=== PATIENT | male | born 1960 | race Caucasian/White ===

== ENCOUNTER → 2019-03-25 15:17 | Outpatient (BNVA) | payer OTHER, SELFPAY | PROVIDERS: Family Provider Nurse Practitioner; Referring Provider Nurse Practitioner Family; Visit Provider Specialist | DX: M25.522 Pain in left elbow (principal) | CPT/HCPCS: 73080 ==

== ENCOUNTER 2019-04-01 14:44 | Outpatient (CLI) | payer OTHER, SELFPAY ==
--- NOTE | 2019-04-01 16:45 | MR_ITS ---
WS: [id number] MRI LEFT ELBOW without CONTRAST. COMPARISON: LEFT elbow radiograph 03/25/2019 Multiplanar, multisequence imaging is performed without contrast. Abnormal T2 signal in the proximal common extensor tendon just lateral to the humeral epicondyles. Th ere is increased T2 signal with thickening of the tendon. The adjacent radial collateral ligament mariya ears to be intact. There is additional linear T2 increased signal in the capitellum. 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 The signal extends greater into the bone marrow than seen for a megan l pseudodefect. I suspect there is probably a small osteochondral lesion in the posterior condyle. No additional signal abnormalities are identified. There is a very tiny spur along the medial radial head. No muscle edema or atrophy. MR/MR elbow LT wo con* [id number] IMPRESSION: 1. High-grade tear involving the common extensor tendon. 2. Linear osteochondral lesion in the posterior capitellum. This appears separ ate from the known pseudodefect that can be present in this location also.
== END 2019-04-01 14:45 | disposition home or self-care (01) ==
LOC: RADSHAW 14:49
PROVIDERS: Family Provider Nurse Practitioner; Visit Provider Specialist
DX: S56.512A Strain of other extensor muscle, fascia and tendon at forearm level, left arm, initial encounter (principal); X58.XXXA Exposure to other specified factors, initial encounter
CPT/HCPCS: 73221

== ENCOUNTER 2023-01-27 09:03 | Outpatient (CLI) | payer BC, SELFPAY ==
--- NOTE | 2023-01-27 10:03 | FL_ITS ---
WS: [id number] Exam: FL barium swallow [id number] Date/Time of Exam: 01/27/2023 10:46 AM Reason For Exam: DYSPHAGIA,PHARYNGEAL PHASE Fluoroscopy time: 2min [id number] minutes # of spot films: Oropharyngeal phase of swallowing was normal. No aspiration. The esophagus is widely patent. No sign of esophageal stricture or mass. The esophagus is not displaced. No hiatal hernia or gastroesophageal reflux observed. IMPRESSION: 1. Patent esophagus with normal motility. No indication of mass, stricture or other significant findi ng.
== END 2023-01-27 09:04 | disposition home or self-care (01) ==
LOC: RAD 09:03
PROVIDERS: Visit Provider Otolaryngology
DX: R13.13 Dysphagia, pharyngeal phase (principal)
CPT/HCPCS: 74220

== ENCOUNTER 2023-01-30 09:33 | Outpatient (CLI) | payer BC, MEDICAID, SELFPAY ==
--- NOTE | 2023-01-30 09:38 | FL_ITS ---
WS: [id number] Exam: FL barium swallow modifd [id number] Date/Time of Exam: 01/30/2023 10:08 AM Reason For Exam: Pharyngeal dysphagia Fluoroscopy time: 2min [id number] minutes # of spot films: Modified barium swallow was performed in conjunction with the speech therapy service. Oral pharyngeal phase of swallowing was normal. The patient tolerated all consistencies of barium mix ture foodstuffs without aspiration or penetration. The patient ingested a barium tablet without diffi culty however the tablet was retained in the lower esophagus and was propelled into the stomach with several swallows of pudding consistency barium. An underlying stenosis or mass in the lower esophagus is not ruled out. IMPRESSION: 1. No aspiration or penetration. 2. Barium tablet was retained in the lower esophagus and was finally propelled into the stomach by in gesting pudding consistency barium foodstuffs. An underlying stricture or mass in the lower esophagus is not ruled out. Endoscopic evaluation of the esophagus is indicated for further work-up.
== END 2023-01-30 09:34 | disposition home or self-care (01) ==
LOC: RAD 09:33
PROVIDERS: Visit Provider Otolaryngology
DX: R13.13 Dysphagia, pharyngeal phase (principal)
CPT/HCPCS: 74230; 92611

== ENCOUNTER 2023-05-26 06:58 | Outpatient (CLI) | payer BC, MEDICAID, SELFPAY ==
--- NOTE | 2023-05-26 07:07 | CT_ITS ---
WS: [id number] CT CHEST, ABDOMEN AND PELVIS WITH CONTRAST HISTORY: MALIGNANT NEOPLASM OF ESOPHAGUS TECHNIQUE: Contiguous 5 mm axial imaging performed through the chest, abdomen and pelvis with IV cont rast, oral contrast has been provided. Coronal and sagittal reformats chest. Coronal and sagittal ref ormats through the abdomen and pelvis. All CT scans at [facility] use at least one of these d ose optimization techniques: automated exposure control; mA and/or kV adjustment per patient size (in cludes targeted exams where dose is matched to clinical indication); or iterative reconstruction. CONTRAST: Omnipaque 350; 100 mL IV. DLP: 576.14 mGy.cm COMPARISON: None available. Chest CT: Hyperexpanded lungs with RIGHT apical pleural thickening. 5 mm noncalcified nodule within t he area of pleural thickening at the RIGHT apex. There are numerous very tiny nodules along the RIGHT fissures. These are typically benign. These are very small, less than 5 mm. No suspicious masses or nodules identified within either lung. No pneumonia. There is a very small layering RIGHT pleural eff usion. Long segment asymmetric soft tissue thickening involving the RIGHT lateral esophagus beginning just b elow the level of the julia. Esophageal wall measures up to 1.5 cm with narrowing of the lumen. Abno rmality extends to near the GE junction. There are a few small mediastinal lymph nodes which are inde terminate. The largest lymph node is RIGHT hilar measuring 9 mm. No paraesophageal lymph node. Normal size heart. Mild atherosclerosis aorta. Normal pulmonary artery. Abdomen CT: There are 2 very tiny hypodensities in the inferior RIGHT lobe of the liver which are too small to characterize. These could potentially represent early metastatic lesions. Normal portal vei n. Normal spleen. Gallbladder is slightly contracted. Negative adrenal glands. Tiny cortical hypodens ities in the lower pole of each kidney. No obstruction. Moderate atherosclerosis aorta with no aneury sm. There is mild thickening of the gastric mucosa. This is diffuse suggest this may be related to gastri tis. This may have been evaluated if a recent endoscopy was performed on the esophagus. There is no o bstruction. No small bowel obstruction. No colon obstruction. No ascites. No adenopathy. Pelvic CT: No free fluid. Negative urinary bladder. Mild prostate enlargement. IMPRESSION: 1. Long segment eccentric wall thickening involving the esophagus beginning just below the level of the julia. Displacement of the esophageal lumen with narrowing. Highly suspicious for neoplasm. 2. There are small bilateral hilar lymph nodes with the largest measuring 9 mm. No pathologically en larged lymph nodes. 3. There are 2 very tiny hypodensities in the inferior RIGHT lobe of the liver which are too small t o characterize. These potentially could represent very small metastatic lesions. 4. Very small RIGHT pleural effusion. 5. Mild chronic emphysema. 6. Within the RIGHT apical pleural thickening there is a 5 mm noncalcified nodule which should be fu rther evaluated. This can be evaluated by PET/CT imaging or follow-up chest CT in 3 months. 7. No ascites. No adenopathy in the abdomen or pelvis. 8. Mild diffuse gastric mucosal thickening. May be a form of gastritis. This was probably evaluated during endoscopy of the esophagus.
[2023-05-26 08:08] LABS: Blood Urea Nitrogen 6 mg/dL (8-23)
[2023-05-26] MEDS: iohexol 350 mg/mL 500 mL Btl (per mL) PO (08:15)
[2023-05-26] MEDS: iohexol 350 mg/mL 500 mL Btl (per mL) IV (08:16)
== END 2023-05-26 06:59 | disposition home or self-care (01) ==
LOC: RAD 06:58
PROVIDERS: Radiology Diagnostic Radiology; Visit Provider Family Medicine
DX: C15.9 Malignant neoplasm of esophagus, unspecified (principal); J90 Pleural effusion, not elsewhere classified; J43.9 Emphysema, unspecified
CPT/HCPCS: 71260; 74177; 82565; 84520; Q9967

== ENCOUNTER 2023-06-12 09:59 | Oncology outpatient (recurring) (ONCR) | payer BC, MEDICAID, SELFPAY ==
[2023-05-28 10:50] LABS: Basophils # 0.1 10^3/uL (0.0-0.1); Basophils % 1.6 %; Eosinophils # 0.1 10^3/uL (0.0-0.8); Eosinophils % 1.4 %; Lymphocytes % 22.1 %; Mean Corpuscular HGB Conc 33.6 g/dL (30-55); Mean Platelet Volume 9.6 fL (7.4-10.4); Monocytes # 0.7 10^3/uL (0.2-0.9); Monocytes % 8.1 %; Neutrophils % 66.5 %; Nucleated Red Blood Cells % 0 %; Platelet Count 359 10^3/cmm (157-399); Red Blood Count 4.63 10^6/uL (3.85-5.65); Red Cell Distribution Width 12.5 % (12.1-15.1); White Blood Count 8.87 10^3/uL (3.29-11.43)
[2023-05-28 11:16] LABS: Alanine Aminotransferase 14 U/L (0-41); Albumin Level 4.2 g/dL (3.5-5.2); Alkaline Phosphatase 123 U/L (40-130); Aspartate Amino Transferase 13 U/L (0-40); Blood Urea Nitrogen 7 mg/dL (8-23); Calcium 9.3 mg/dL (8.5-10.5); Carbon Dioxide 25 mmol/L (22-29); Chloride 98 mmol/L (98-107); Creatinine Clr Calc Pharmacy 85.9644; Globulin 3.4 g/dL (1.3-4.6); Glomerular Filtration Rate 97.3 mL/min (90-130); Glucose 112 mg/dL (65-115); Osmolality Calculated 277 mOsm/kg (285-295); Sodium 134 mmol/L (136-145); Total Bilirubin 0.7 mg/dL (0.15-1.2); Total Protein 7.6 g/dL (6.6-8.7)
[2023-05-28 11:37] LABS: Anion Gap 15.5 (5-19); Potassium 4.5 mmol/L (3.5-5.1)
--- NOTE | 2023-06-03 11:30 | PETR_ITS ---
ROCEDURE INFORMATION: Exam: PET/CT Skull Base to Mid-thigh Exam date and time: 06/03/2023 12:23 PM Age: 63 years old Clinical indication: Condition or disease; Primary cancer: Esophageal cancer; Initial oncological staging assessment; Additional info: Esophageal cancer, stat LABS AND CLINICAL REPORTS: Glucose: 99 mg/dl Treatment strategy for malignancy (PET staging): Initial Staging (PI) TECHNIQUE: Imaging protocol: Following at least four-hour fasting and following the injection of radiopharmaceutical, low dose CT images were obtained. Then, PET images were obtained. Attenuation corrected images were constructed using the CT scan. Fused images of PET and CT were reviewed. The standardized uptake values (SUV) reported below are maximum values within a region of interest, expressed in gm/ml. Exam includes orbital meatal line to mid-thigh. Radiopharmaceutical: 11.45 mCi F-18 FDG (Fluorodeoxyglucose), IV. Time of imaging post radiopharmaceutical administration: 1 hour Injection site: Left antecubital vein COMPARISON: CT chest abdpel w/*[id number] 05/26/2023 8:11 AM FINDINGS: Brain: Visualized brain has normal physiologic uptake. Pharynx: No abnormal uptake. Larynx: No abnormal uptake. Lungs, pleura and trachea: Intense uptake of 7.4 SUV within 5 mm thick right upper mediastinal pleura (axial images 61-66). Increased uptake of 4.5 SUV inferiorly posteriorly in the right hemithorax along the pleural lining on axial image 102. There is mild right pleural effusion increased in comparison with prior exam on 05/26/2023 that appears loculated with small extension of fluid into the oblique interlobar fissure with increased uptake of 2.4 SUV within the fluid concerning for malignant effusion. There is paraseptal emphysema in the bilateral lung apices. No lung nodules or masses. Heart: Normal physiologic uptake. Mediastinal space: Increased uptake along the right wall of the esophagus from the level immediately below the julia extending into the distal esophagus measuring 7 SUV superiorly and 5.6 SUV inferiorly. It is unclear if the entire uptake is within the esophagus or part of it is within the adjacent right posterior mediastinal pleura. Concentric wall thickening of the in the distal esophagus between T8 and T10 levels. No abnormal dilatation of the esophagus. Liver: No abnormal uptake. Gallbladder and bile ducts: No abnormal uptake. No calcified gallstones. Pancreas: No abnormal uptake. Spleen: No abnormal uptake. No splenomegaly. Adrenal glands: No abnormal uptake. No nodules. Kidneys and ureters: Normal physiologic uptake. No hydronephrosis. Stomach and bowel: No abnormal uptake. Vasculature: No abnormal uptake. Lymph nodes: No abnormal uptake. No lymphadenopathy in the head, neck, chest, abdomen, pelvis, and extremities. There is sequela of exposure to granulomatous disease with calcified granulomas in normal size left hilar lymph nodes. Bones/joints: No abnormal uptake in the visualized axial and appendicular skeleton. Soft tissues: No abnormal uptake in the visualized head, neck, chest, abdomen, pelvis, and extremities. PET[facility] IN[facility]IAL [id number] IMPRESSION: Area of concentric wall thickening in the distal esophagus between T8 and T10 levels with increased uptake only along the right wall measuring up to 7 SUV suggestive of known primary malignancy. Increased uptake along the right posterior mediastinal pleura and within small right pleural effusion concerning for pleural metastases and malignant effusion.
== END 2023-06-17 23:59 | disposition home or self-care (01) ==
PROVIDERS: Visit Provider Internal Medicine Medical Oncology
DX: Z53.9 Procedure and treatment not carried out, unspecified reason (principal)
CPT/HCPCS: 36415; 78815; 80053; 84443; 85025; A9552

== ENCOUNTER 2023-06-16 15:13 | Outpatient (CLI) | payer BC, MEDICAID, SELFPAY ==
--- NOTE | 2023-06-16 15:30 | US_ITS ---
WS: [id number] RIGHT chest ultrasound. HISTORY: Evaluate pleural effusion. COMPARISON: PET/CT 06/03/[address] 05/26/2023. There is a small layering RIGHT pleural effusion. There is mild irregularity along the pleura but no mass. This study is not sufficient to evaluate for pleural metastasis. The fluid does appear complex. US/US chest [id number] IMPRESSION: Small RIGHT pleural effusion with mild pleural nodularity. This study is not alonso fficient to exclude pleural metastasis.
== END 2023-06-16 15:14 | disposition home or self-care (01) ==
LOC: RAD 15:13
PROVIDERS: PCP Physician Assistant; Visit Provider Internal Medicine Hematology & Oncology
DX: C15.5 Malignant neoplasm of lower third of esophagus (principal); J90 Pleural effusion, not elsewhere classified; R91.1 Solitary pulmonary nodule
CPT/HCPCS: 76604

== ENCOUNTER 2023-07-10 13:00 | Day surgery (SDC) | payer BC, MEDICAID, SELFPAY ==
--- NOTE | 2023-07-10 13:10 | US_ITS ---
WS: [id number] ULTRASOUND-GUIDED THORACENTESIS CLINICAL INFORMATION: abnormal chest ultrasound COMPARISON: None. PROCEDURE: Informed consent: The risks, benefits, and alternatives of the procedure were discussed with the arielle ent. Verbal and written consent was obtained. Timeout: A timeout was performed to confirm the correct patient, procedure, and site. Site: RIGHT chest Preparation: A suitable skin site was identified. The patient was prepped and draped in usual sterile fashion. Lidocaine 1% was used for local anesthesia. Catheter: 4 [place] One-Step catheter. Fluid Volume: 1050 ml Color: Bloody Fluid sent to the laboratory for cytology. Complications: None. Patient disposition: Discharged from the department in stable condition. / thoracentesis [id number] IMPRESSION: Uncomplicated ultrasound-guided RIGHT thoracentesis. Removal of 1050 cc bloody fluid.
[2023-07-10 13:14] VITALS: BP 125/83; PULSE 105; RESP 18; TEMP 36.3; O2SAT 94
--- NOTE | 2023-07-10 14:09 | XR_ITS ---
WS: [id number] CHEST XRAY TECHNIQUE: Portable chest. CLINICAL INFORMATION: post thoracentesis COMPARISON: None. FINDINGS: Heart: Normal cardiac silhouette. Lungs: Improved RIGHT pleural effusion status post thoracentesis. Residual consolidated lung in the R IGHT mid and lower lobes with probable residual pleural fluid. LEFT lung is well aerated. No pneumoth orax. RIGHT Port-A-Cath with tip in the SVC. Bones: Normal visualized bony structures. XR/XR chest 1V portable [id number] IMPRESSION: 1. No pneumothorax post RIGHT thoracentesis. 2. Persistent consolidation in the RIGHT mid and lower lobes.
[2023-07-10 14:23] VITALS: BP 120/83; PULSE 88; RESP 18; O2SAT 100
[2023-07-10 16:19] LABS: Cyto Order Verification Order Verified
== END 2023-07-10 15:13 | disposition home or self-care (01) ==
PROVIDERS: Radiology Neuroradiology; PCP Physician Assistant; Visit Provider Internal Medicine Hematology & Oncology
PROC: (CPT 32554; principal; 2023-07-10 14:00)
DX: R91.8 Other nonspecific abnormal finding of lung field (principal)
CPT/HCPCS: 32555; 71045; 80503; 88112

== ENCOUNTER 2023-07-25 09:47 | Oncology outpatient (recurring) (ONCR) | payer BC, MEDICAID, SELFPAY | END 2023-08-17 23:59 | disposition home or self-care (01) | PROVIDERS: PCP Physician Assistant; Visit Provider Internal Medicine Medical Oncology | DX: Z45.2 Encounter for adjustment and management of vascular access device (principal); Z53.9 Procedure and treatment not carried out, unspecified reason ==

== ENCOUNTER 2023-08-19 07:53 | Oncology outpatient (recurring) (ONCR) | payer BC, MEDICAID, SELFPAY ==
[2023-08-19 08:22] LABS: Basophils # 0.1 10^3/uL (0.0-0.1); Basophils % 1.2 %; Eosinophils # 0.2 10^3/uL (0.0-0.8); Eosinophils % 2.9 %; Hematocrit 40.9 % (37-53); Lymphocytes # 1.7 10^3/uL (0.8-4.8); Mean Corpuscular HGB Conc 32.8 g/dL (30-55); Mean Corpuscular Hemoglobin 29.2 pg (27-33); Mean Corpuscular Volume 89.1 fl (82-101); Mean Platelet Volume 9.9 fL (7.4-10.4); Monocytes # 0.8 10^3/uL (0.2-0.9); Monocytes % 9.9 %; Neutrophils # 4.79 10^3/uL (1.8-7.7); Neutrophils % 63.5 %; Nucleated Red Blood Cells % 0 %; Platelet Count 365 10^3/cmm (157-399); Red Blood Count 4.59 10^6/uL (3.85-5.65); Red Cell Distribution Width 14.6 % (12.1-15.1); White Blood Count 7.55 10^3/uL (3.29-11.43)
[2023-08-19 08:43] LABS: Alanine Aminotransferase 14 U/L (0-41); Alkaline Phosphatase 120 U/L (40-130); Anion Gap 17.2 (5-19); Aspartate Amino Transferase 13 U/L (0-40); Blood Urea Nitrogen 12 mg/dL (8-23); Calcium 9.5 mg/dL (8.5-10.5); Carbon Dioxide 27 mmol/L (22-29); Chloride 98 mmol/L (98-107); Globulin 3.8 g/dL (1.3-4.6); Glomerular Filtration Rate 167.4 mL/min (90-130); Glucose 119 mg/dL (65-115); Osmolality Calculated 287 mOsm/kg (285-295); Potassium 4.2 mmol/L (3.5-5.1); Sodium 138 mmol/L (136-145); Total Bilirubin 0.4 mg/dL (0.15-1.2); Total Protein 7.8 g/dL (6.6-8.7)
[2023-08-19] MEDS: pembrolizumab 200 MG in sodium chloride 0.9% 250 ML 516 MG IV (10:51)
[2023-08-19 11:25] VITALS: BP 124/75; PULSE 70; RESP 16; O2SAT 99
== END 2023-08-19 23:59 | disposition home or self-care (01) ==
PROVIDERS: PCP Physician Assistant; Visit Provider Internal Medicine Medical Oncology
DX: Z53.9 Procedure and treatment not carried out, unspecified reason; C15.9 Malignant neoplasm of esophagus, unspecified
CPT/HCPCS: 80053; 85025; 96413; A4222; J7050; J9271

== ENCOUNTER 2023-08-25 10:39 | Day surgery (SDC) | payer BC, MEDICAID, SELFPAY ==
--- NOTE | 2023-08-25 10:35 | US_ITS ---
WS: [id number] INDICATION: RIGHT pleural effusion TECHNIQUE: Ultrasound RIGHT chest. Only a small RIGHT pleural effusion visualized with RIGHT basilar atelectasis. Insufficient fluid for thoracentesis at this time. Options discussed with patient. US/US chest [id number] IMPRESSION: Only a small RIGHT pleural effusion. Thoracentesis not performed.
[2023-08-25 10:41] VITALS: BP 131/88; PULSE 105; RESP 16; TEMP 36.7; O2SAT 99
--- NOTE | 2023-08-25 11:34 | PC.NURSE ---
RADIOLOGIST DETERMINED INSUFFICIENT FLUID IN LUNGS WITH IMAGES ON ULTRASOUND. PT INSTRUCTED TO REACH OUT TO ORDERING PROVIDER TO RE-SCHEDULE IF NECESSARY. PT VERBALIZED UNDERSTANDING.
== END 2023-08-25 11:29 | disposition home or self-care (01) ==
LOC: GILAB 12:03
PROVIDERS: Radiology Neuroradiology; PCP Physician Assistant; Visit Provider Internal Medicine Hematology & Oncology
PROC: (CPT 32554; principal; 2023-08-25 11:30)
DX: J90 Pleural effusion, not elsewhere classified (principal); J98.11 Atelectasis
CPT/HCPCS: 76604

== ENCOUNTER 2023-09-09 08:30 | Oncology outpatient (recurring) (ONCR) | payer BC, MEDICAID, SELFPAY ==
[2023-08-20 08:56] VITALS: BP 119/77; PULSE 100; RESP 16; TEMP 36.3; O2SAT 95
[2023-08-20] MEDS: dextrose 5% 250 ML 75 ML IV (09:26)
[2023-08-20] MEDS: palonosetron 0.25 mg/5 mL SDV IVP (09:29)
[2023-08-20] MEDS: dexamethasone 4 mg/mL INJ 5 mL 12 MG IVP (09:33)
[2023-08-20] MEDS: leucovorin 660 MG in dextrose 5% 250 ML 62.5 MG IV (10:08)
[2023-08-20] MEDS: oxaliplatin 100 MG, oxaliplatin 40 MG in dextrose 5% 250 ML 139 MG IV (10:08)
[2023-08-20 12:15] VITALS: BP 107/68; PULSE 83; TEMP 36.4; O2SAT 93
[2023-08-20] MEDS: fluorouraciL 3,950 MG, elastomeric pump 1 PUMP in sodium chloride 0.9% (100 ml) 13 ML IV (12:16)
[2023-08-22 10:55] VITALS: BP 120/79; PULSE 72; RESP 18; TEMP 36.8; O2SAT 97
[2023-08-26 11:23] LABS: Basophils # 0.1 10^3/uL (0.0-0.1); Basophils % 1.4 %; Eosinophils # 0.1 10^3/uL (0.0-0.8); Eosinophils % 1.1 %; Hematocrit 42.3 % (37-53); Lymphocytes # 1.4 10^3/uL (0.8-4.8); Lymphocytes % 22.9 %; Mean Corpuscular HGB Conc 33.1 g/dL (30-55); Mean Corpuscular Hemoglobin 29.4 pg (27-33); Mean Corpuscular Volume 88.9 fl (82-101); Mean Platelet Volume 9.8 fL (7.4-10.4); Monocytes # 0.4 10^3/uL (0.2-0.9); Monocytes % 6.7 %; Neutrophils # 4.25 10^3/uL (1.8-7.7); Neutrophils % 67.6 %; Nucleated Red Blood Cells % 0 %; Platelet Count 307 10^3/cmm (157-399); Red Blood Count 4.76 10^6/uL (3.85-5.65); Red Cell Distribution Width 13.9 % (12.1-15.1); White Blood Count 6.29 10^3/uL (3.29-11.43)
[2023-09-03 08:23] LABS: Basophils # 0.1 10^3/uL (0.0-0.1); Basophils % 1.3 %; Eosinophils # 0.2 10^3/uL (0.0-0.8); Eosinophils % 3.2 %; Hematocrit 39.1 % (37-53); Lymphocytes # 1.3 10^3/uL (0.8-4.8); Lymphocytes % 21.2 %; Mean Corpuscular Hemoglobin 29.2 pg (27-33); Mean Corpuscular Volume 88.5 fl (82-101); Mean Platelet Volume 9.8 fL (7.4-10.4); Monocytes # 0.8 10^3/uL (0.2-0.9); Neutrophils # 3.87 10^3/uL (1.8-7.7); Nucleated Red Blood Cells % 0 %; Platelet Count 304 10^3/cmm (157-399); Red Blood Count 4.42 10^6/uL (3.85-5.65); Red Cell Distribution Width 15.1 % (12.1-15.1); White Blood Count 6.33 10^3/uL (3.29-11.43)
[2023-09-03 08:46] LABS: Alanine Aminotransferase 31 U/L (0-41); Albumin Level 3.9 g/dL (3.5-5.2); Alkaline Phosphatase 115 U/L (40-130); Anion Gap 15.1 (5-19); Aspartate Amino Transferase 21 U/L (0-40); Blood Urea Nitrogen 14 mg/dL (8-23); Calcium 8.9 mg/dL (8.5-10.5); Carbon Dioxide 28 mmol/L (22-29); Chloride 99 mmol/L (98-107); Creatinine Clr Calc Pharmacy 108.7138; Globulin 3.3 g/dL (1.3-4.6); Glomerular Filtration Rate 135.6 mL/min (90-130); Glucose 132 mg/dL (65-115); Osmolality Calculated 288 mOsm/kg (285-295); Potassium 4.1 mmol/L (3.5-5.1); Sodium 138 mmol/L (136-145); Total Bilirubin 0.3 mg/dL (0.15-1.2); Total Protein 7.2 g/dL (6.6-8.7)
[2023-09-03] MEDS: dexamethasone 4 mg/mL INJ 5 mL 12 MG IVP (09:21)
[2023-09-03] MEDS: dextrose 5% 250 ML 75 ML IV (09:21)
[2023-09-03] MEDS: palonosetron 0.25 mg/5 mL SDV IVP (09:29)
[2023-09-03] MEDS: oxaliplatin 100 MG, oxaliplatin 46 MG in dextrose 5% 250 ML 139.6 MG IV (10:14)
[2023-09-03] MEDS: leucovorin 690 MG in dextrose 5% 250 ML 62.5 MG IV (10:15)
[2023-09-03 12:33] VITALS: BP 116/77; PULSE 75; RESP 18; TEMP 36.4; O2SAT 97
[2023-09-03] MEDS: fluorouraciL 4,150 MG, elastomeric pump 1 PUMP in sodium chloride 0.9% (100 ml) 9 ML IV (12:42)
[2023-09-05 10:23] VITALS: BP 118/75; PULSE 80; RESP 16; TEMP 36.5; O2SAT 97
[2023-09-09 08:58] VITALS: BP 124/79; PULSE 91; TEMP 36.4; O2SAT 99
[2023-09-09 09:12] LABS: Basophils # 0.1 10^3/uL (0.0-0.1); Basophils % 2.8 %; Eosinophils # 0.1 10^3/uL (0.0-0.8); Eosinophils % 2.8 %; Hematocrit 40.8 % (37-53); Lymphocytes # 1.4 10^3/uL (0.8-4.8); Mean Corpuscular HGB Conc 34.1 g/dL (30-55); Mean Corpuscular Hemoglobin 29.7 pg (27-33); Mean Corpuscular Volume 87.2 fl (82-101); Mean Platelet Volume 9.9 fL (7.4-10.4); Monocytes # 0.6 10^3/uL (0.2-0.9); Monocytes % 13.4 %; Neutrophils # 2.29 10^3/uL (1.8-7.7); Neutrophils % 49.8 %; Nucleated Red Blood Cells % 0 %; Platelet Count 341 10^3/cmm (157-399); Red Blood Count 4.68 10^6/uL (3.85-5.65); Red Cell Distribution Width 14.8 % (12.1-15.1); White Blood Count 4.61 10^3/uL (3.29-11.43)
[2023-09-09] MEDS: pembrolizumab 200 MG in sodium chloride 0.9% 250 ML 516 MG IV (09:58)
[2023-09-09 10:35] VITALS: BP 110/74; PULSE 78; RESP 16; TEMP 36.7; O2SAT 98
== END 2023-09-09 23:59 | disposition home or self-care (01) ==
PROVIDERS: Nurse Practitioner Family; PCP Physician Assistant; Visit Provider Internal Medicine Medical Oncology
DX: Z51.12 Encounter for antineoplastic immunotherapy (principal); Z53.9 Procedure and treatment not carried out, unspecified reason; C15.5 Malignant neoplasm of lower third of esophagus
CPT/HCPCS: 36415; 80053; 84443; 85025; 96367; 96368; 96375; 96413; 96415; 96416; 96417; 96523; J0640; J1100; J2469; J7050; J7060; J9190; J9263; J9271

== ENCOUNTER 2023-09-17 07:54 | Oncology outpatient (recurring) (ONCR) | payer BC, MEDICAID, SELFPAY ==
[2023-09-17 08:26] LABS: Basophils # 0.1 10^3/uL (0.0-0.1); Basophils % 1.7 %; Eosinophils # 0.2 10^3/uL (0.0-0.8); Eosinophils % 2.6 %; Hematocrit 39.8 % (37-53); Lymphocytes # 1.3 10^3/uL (0.8-4.8); Lymphocytes % 19.7 %; Mean Corpuscular HGB Conc 33.4 g/dL (30-55); Mean Corpuscular Volume 89.6 fl (82-101); Mean Platelet Volume 9.8 fL (7.4-10.4); Monocytes # 0.8 10^3/uL (0.2-0.9); Monocytes % 12.6 %; Neutrophils # 4.03 10^3/uL (1.8-7.7); Neutrophils % 62.6 %; Nucleated Red Blood Cells % 0 %; Platelet Count 222 10^3/cmm (157-399); Red Blood Count 4.44 10^6/uL (3.85-5.65); Red Cell Distribution Width 16.3 % (12.1-15.1); White Blood Count 6.44 10^3/uL (3.29-11.43)
[2023-09-17 08:43] LABS: Alanine Aminotransferase 20 U/L (0-41); Albumin Level 3.9 g/dL (3.5-5.2); Alkaline Phosphatase 114 U/L (40-130); Anion Gap 16.1 (5-19); Aspartate Amino Transferase 17 U/L (0-40); Blood Urea Nitrogen 11 mg/dL (8-23); Calcium 9.1 mg/dL (8.5-10.5); Carbon Dioxide 26 mmol/L (22-29); Chloride 103 mmol/L (98-107); Globulin 3.2 g/dL (1.3-4.6); Glomerular Filtration Rate 135.6 mL/min (90-130); Glucose 147 mg/dL (65-115); Osmolality Calculated 294 mOsm/kg (285-295); Potassium 4.1 mmol/L (3.5-5.1); Sodium 141 mmol/L (136-145); Total Bilirubin 0.3 mg/dL (0.15-1.2); Total Protein 7.1 g/dL (6.6-8.7)
[2023-09-17 08:44] LABS: Creatinine Clr Calc Pharmacy 96.0573
[2023-09-17 09:40] VITALS: BP 109/76; PULSE 83; RESP 16; TEMP 36.7; O2SAT 97
[2023-09-17] MEDS: dextrose 5% 250 ML 75 ML IV (09:43)
[2023-09-17] MEDS: palonosetron 0.25 mg/5 mL SDV IVP (09:45)
[2023-09-17] MEDS: dexamethasone 4 mg/mL INJ 5 mL 12 MG IVP (09:47)
[2023-09-17] MEDS: oxaliplatin 100 MG, oxaliplatin 46 MG in dextrose 5% 250 ML 139.6 MG IV (10:09)
[2023-09-17] MEDS: leucovorin 690 MG in dextrose 5% 250 ML 62.5 MG IV (10:09)
[2023-09-17] MEDS: fluorouraciL 4,150 MG, elastomeric pump 1 PUMP in sodium chloride 0.9% (100 ml) 9 ML IV (12:25)
[2023-09-17 12:32] VITALS: BP 124/74; PULSE 74; RESP 18; TEMP 36.6; O2SAT 98
== END 2023-09-17 23:59 | disposition home or self-care (01) ==
PROVIDERS: Internal Medicine Medical Oncology; PCP Physician Assistant; Visit Provider Nurse Practitioner Family
DX: C15.5 Malignant neoplasm of lower third of esophagus; R53.83 Other fatigue; Z51.11 Encounter for antineoplastic chemotherapy; K21.9 Gastro-esophageal reflux disease without esophagitis; R10.9 Unspecified abdominal pain; Z79.52 Long term (current) use of systemic steroids; Z79.899 Other long term (current) drug therapy
CPT/HCPCS: 80053; 85025; 96375; 96413; 96415; 96416; 96417; J0640; J1100; J2469; J7060; J9190; J9263

== ENCOUNTER 2023-10-01 07:45 | Oncology outpatient (recurring) (ONCR) | payer BC, MEDICAID, SELFPAY ==
[2023-09-19 09:10] VITALS: BP 117/78; PULSE 96; O2SAT 98
[2023-10-01 07:51] LABS: Basophils # 0.1 10^3/uL (0.0-0.1); Basophils % 1.8 %; Eosinophils # 0.1 10^3/uL (0.0-0.8); Eosinophils % 2.8 %; Hematocrit 40.6 % (37-53); Lymphocytes # 1.5 10^3/uL (0.8-4.8); Lymphocytes % 29.6 %; Mean Corpuscular Hemoglobin 29.9 pg (27-33); Mean Corpuscular Volume 90.6 fl (82-101); Monocytes # 1.1 10^3/uL (0.2-0.9); Monocytes % 21.5 %; Neutrophils # 2.16 10^3/uL (1.8-7.7); Neutrophils % 43.9 %; Nucleated Red Blood Cells % 0 %; Platelet Count 156 10^3/cmm (157-399); Red Blood Count 4.48 10^6/uL (3.85-5.65); Red Cell Distribution Width 17.6 % (12.1-15.1); White Blood Count 4.93 10^3/uL (3.29-11.43)
[2023-10-01 08:16] LABS: Alanine Aminotransferase 29 U/L (0-41); Albumin Level 3.9 g/dL (3.5-5.2); Alkaline Phosphatase 123 U/L (40-130); Anion Gap 15.2 (5-19); Aspartate Amino Transferase 22 U/L (0-40); Blood Urea Nitrogen 13 mg/dL (8-23); Calcium 9.3 mg/dL (8.5-10.5); Carbon Dioxide 24 mmol/L (22-29); Chloride 99 mmol/L (98-107); Globulin 3.4 g/dL (1.3-4.6); Glomerular Filtration Rate 113.5 mL/min (90-130); Glucose 109 mg/dL (65-115); Osmolality Calculated 279 mOsm/kg (285-295); Potassium 4.2 mmol/L (3.5-5.1); Sodium 134 mmol/L (136-145); Thyroid Stimulating Hormone 1.17 uIU/mL (0.27-4.20); Total Bilirubin 0.5 mg/dL (0.15-1.2); Total Protein 7.3 g/dL (6.6-8.7)
[2023-10-01] MEDS: dextrose 5% 250 ML 75 ML IV (09:19)
[2023-10-01] MEDS: dexamethasone 4 mg/mL INJ 5 mL 12 MG IVP (09:19)
[2023-10-01] MEDS: palonosetron 0.25 mg/5 mL SDV IVP (09:20)
[2023-10-01] MEDS: pembrolizumab 200 MG in sodium chloride 0.9% 250 ML 516 MG IV (09:45)
[2023-10-01] MEDS: leucovorin 690 MG in dextrose 5% 250 ML 62.5 MG IV (10:33)
[2023-10-01] MEDS: oxaliplatin 100 MG, oxaliplatin 46 MG in dextrose 5% 250 ML 139.6 MG IV (10:33)
[2023-10-01] MEDS: fluorouraciL 4,150 MG, elastomeric pump 1 PUMP in sodium chloride 0.9% (100 ml) 9 ML IV (12:56)
[2023-10-01 13:03] VITALS: BP 180/68; PULSE 69; RESP 18; TEMP 36.6; O2SAT 98
== END 2023-10-01 23:59 | disposition home or self-care (01) ==
PROVIDERS: Internal Medicine Medical Oncology; PCP Physician Assistant; Visit Provider Nurse Practitioner Family
DX: Z51.12 Encounter for antineoplastic immunotherapy (principal); Z53.9 Procedure and treatment not carried out, unspecified reason; Z51.11 Encounter for antineoplastic chemotherapy; Z79.899 Other long term (current) drug therapy; C15.5 Malignant neoplasm of lower third of esophagus
CPT/HCPCS: 80053; 84443; 85025; 96368; 96375; 96413; 96415; 96417; 96523; A4222; J0640; J1100; J2469; J7050; J7060; J9190; J9263; J9271

== ENCOUNTER 2023-10-15 07:23 | Oncology outpatient (recurring) (ONCR) | payer BC, MEDICAID, SELFPAY ==
[2023-10-03 08:17] VITALS: BP 114/76; PULSE 90; RESP 16; TEMP 36.5; O2SAT 98
--- NOTE | 2023-10-03 08:28 | PC.NURSE ---
Orthostatic pressures: sitting 114/76 pulse 90 standing 96/67 pulse of 98. Pt states his treatment is messing with my eyes he states when he stands his visions changes and he feels like he is looking through a tunnel. He states it doesn't happen every time and will eventually go away on its own. Provider, Tamar Mc was notified.
[2023-10-15 08:14] LABS: Basophils # 0.1 10^3/uL (0.0-0.1); Basophils % 1.9 %; Eosinophils # 0.1 10^3/uL (0.0-0.8); Eosinophils % 2.6 %; Hematocrit 42.2 % (37-53); Lymphocytes # 1.7 10^3/uL (0.8-4.8); Lymphocytes % 38.6 %; Mean Corpuscular HGB Conc 32.9 g/dL (30-55); Mean Corpuscular Hemoglobin 30.5 pg (27-33); Mean Corpuscular Volume 92.5 fl (82-101); Monocytes % 22.5 %; Neutrophils # 1.45 10^3/uL (1.8-7.7); Neutrophils % 33.9 %; Nucleated Red Blood Cells % 0 %; Platelet Count 152 10^3/cmm (157-399); Red Blood Count 4.56 10^6/uL (3.85-5.65); Red Cell Distribution Width 18.6 % (12.1-15.1); White Blood Count 4.27 10^3/uL (3.29-11.43)
[2023-10-15 08:25] LABS: Alanine Aminotransferase 89 U/L (0-41); Alkaline Phosphatase 130 U/L (40-130); Anion Gap 17.2 (5-19); Aspartate Amino Transferase 62 U/L (0-40); Blood Urea Nitrogen 8 mg/dL (8-23); Calcium 9.3 mg/dL (8.5-10.5); Carbon Dioxide 23 mmol/L (22-29); Chloride 96 mmol/L (98-107); Creatinine Clr Calc Pharmacy 108.7138; Globulin 3.3 g/dL (1.3-4.6); Glomerular Filtration Rate 135.6 mL/min (90-130); Glucose 110 mg/dL (65-115); Osmolality Calculated 273 mOsm/kg (285-295); Potassium 4.2 mmol/L (3.5-5.1); Sodium 132 mmol/L (136-145); Total Bilirubin 0.6 mg/dL (0.15-1.2); Total Protein 7.3 g/dL (6.6-8.7)
[2023-10-15 08:35] LABS: Slide Review Slide Review Perform
== END 2023-10-18 23:59 | disposition home or self-care (01) ==
PROVIDERS: PCP Physician Assistant; Visit Provider Nurse Practitioner Family
DX: C15.5 Malignant neoplasm of lower third of esophagus (principal)
CPT/HCPCS: 71275; 80053; 85025; 96523

== ENCOUNTER 2023-11-17 07:31 | Oncology outpatient (recurring) (ONCR) | payer BC, MEDICAID, SELFPAY ==
[2023-10-22 08:02] LABS: Basophils # 0.1 10^3/uL (0.0-0.1); Basophils % 2.3 %; Eosinophils # 0.1 10^3/uL (0.0-0.8); Eosinophils % 2.8 %; Hematocrit 43.4 % (37-53); Lymphocytes # 1.5 10^3/uL (0.8-4.8); Lymphocytes % 34.3 %; Mean Corpuscular HGB Conc 33.4 g/dL (30-55); Mean Corpuscular Hemoglobin 31.5 pg (27-33); Mean Corpuscular Volume 94.3 fl (82-101); Mean Platelet Volume 9.1 fL (7.4-10.4); Monocytes # 0.6 10^3/uL (0.2-0.9); Monocytes % 14.7 %; Neutrophils # 1.95 10^3/uL (1.8-7.7); Nucleated Red Blood Cells % 0 %; Platelet Count 238 10^3/cmm (157-399); Red Cell Distribution Width 18.6 % (12.1-15.1); White Blood Count 4.34 10^3/uL (3.29-11.43)
[2023-10-22 08:33] LABS: Alanine Aminotransferase 80 U/L (0-41); Alkaline Phosphatase 127 U/L (40-130); Aspartate Amino Transferase 48 U/L (0-40); Blood Urea Nitrogen 11 mg/dL (8-23); Calcium 9.3 mg/dL (8.5-10.5); Carbon Dioxide 21 mmol/L (22-29); Chloride 99 mmol/L (98-107); Globulin 3.5 g/dL (1.3-4.6); Glomerular Filtration Rate 113.5 mL/min (90-130); Glucose 196 mg/dL (65-115); Osmolality Calculated 285 mOsm/kg (285-295); Sodium 135 mmol/L (136-145); Total Bilirubin 0.4 mg/dL (0.15-1.2); Total Protein 7.5 g/dL (6.6-8.7)
[2023-11-17 08:01] LABS: Basophils # 0.1 10^3/uL (0.0-0.1); Basophils % 1.9 %; Eosinophils # 0.2 10^3/uL (0.0-0.8); Eosinophils % 2.6 %; Hematocrit 41.2 % (37-53); Lymphocytes # 1.6 10^3/uL (0.8-4.8); Lymphocytes % 23.8 %; Mean Corpuscular Volume 94.5 fl (82-101); Mean Platelet Volume 9.9 fL (7.4-10.4); Monocytes # 0.7 10^3/uL (0.2-0.9); Monocytes % 9.6 %; Neutrophils # 4.22 10^3/uL (1.8-7.7); Neutrophils % 61.7 %; Nucleated Red Blood Cells % 0 %; Platelet Count 293 10^3/cmm (157-399); Red Blood Count 4.36 10^6/uL (3.85-5.65); Red Cell Distribution Width 14.5 % (12.1-15.1); White Blood Count 6.85 10^3/uL (3.29-11.43)
[2023-11-17 08:31] LABS: Alanine Aminotransferase 12 U/L (0-41); Albumin Level 4.2 g/dL (3.5-5.2); Alkaline Phosphatase 122 U/L (40-130); Anion Gap 15.4 (5-19); Aspartate Amino Transferase 15 U/L (0-40); Blood Urea Nitrogen 15 mg/dL (8-23); Calcium 9.8 mg/dL (8.5-10.5); Carbon Dioxide 26 mmol/L (22-29); Chloride 99 mmol/L (98-107); Creatinine Clr Calc Pharmacy 81.5955; Globulin 3.4 g/dL (1.3-4.6); Glomerular Filtration Rate 97.3 mL/min (90-130); Glucose 129 mg/dL (65-115); Osmolality Calculated 285 mOsm/kg (285-295); Potassium 4.4 mmol/L (3.5-5.1); Sodium 136 mmol/L (136-145); Thyroid Stimulating Hormone 0.43 uIU/mL (0.27-4.20); Total Bilirubin 0.5 mg/dL (0.15-1.2); Total Protein 7.6 g/dL (6.6-8.7)
== END 2023-11-17 23:59 | disposition home or self-care (01) ==
PROVIDERS: PCP Physician Assistant; Visit Provider Nurse Practitioner Family
DX: C15.5 Malignant neoplasm of lower third of esophagus (principal); Z53.9 Procedure and treatment not carried out, unspecified reason
CPT/HCPCS: 80053; 84443; 85025

== ENCOUNTER 2023-12-03 08:35 | Oncology outpatient (recurring) (ONCR) | payer BC, MEDICAID, SELFPAY ==
[2023-12-02 09:16] LABS: Basophils # 0.1 10^3/uL (0.0-0.1); Basophils % 1.6 %; Eosinophils # 0.2 10^3/uL (0.0-0.8); Eosinophils % 2.5 %; Hematocrit 41.5 % (37-53); Lymphocytes # 1.6 10^3/uL (0.8-4.8); Lymphocytes % 23.8 %; Mean Corpuscular HGB Conc 34.2 g/dL (30-55); Mean Corpuscular Hemoglobin 32.4 pg (27-33); Mean Corpuscular Volume 94.7 fl (82-101); Mean Platelet Volume 9.9 fL (7.4-10.4); Monocytes # 0.7 10^3/uL (0.2-0.9); Monocytes % 9.7 %; Neutrophils # 4.29 10^3/uL (1.8-7.7); Neutrophils % 62.1 %; Nucleated Red Blood Cells % 0 %; Platelet Count 294 10^3/cmm (157-399); Red Blood Count 4.38 10^6/uL (3.85-5.65); Red Cell Distribution Width 13.1 % (12.1-15.1)
[2023-12-02 09:39] LABS: Carcinoembryonic Antigen 4.7 ng/mL (0.0-4.7)
[2023-12-02 09:51] LABS: Alanine Aminotransferase 13 U/L (0-41); Albumin Level 4.3 g/dL (3.5-5.2); Alkaline Phosphatase 129 U/L (40-130); Anion Gap 16.3 (5-19); Aspartate Amino Transferase 18 U/L (0-40); Blood Urea Nitrogen 8 mg/dL (8-23); Calcium 9.4 mg/dL (8.5-10.5); Carbon Dioxide 25 mmol/L (22-29); Chloride 98 mmol/L (98-107); Creatinine Clr Calc Pharmacy 79.3431; Glomerular Filtration Rate 113.5 mL/min (90-130); Glucose 124 mg/dL (65-115); Lactate Dehydrogenase 165 U/L (135-225); Osmolality Calculated 280 mOsm/kg (285-295); Potassium 4.3 mmol/L (3.5-5.1); Sodium 135 mmol/L (136-145); Total Bilirubin 0.7 mg/dL (0.15-1.2); Total Protein 7.3 g/dL (6.6-8.7)
[2023-12-03 08:59] VITALS: BP 128/79; PULSE 79; RESP 16; TEMP 36.6; O2SAT 99
[2023-12-03] MEDS: acetaminophen 325 mg Tablet 650 MG PO (09:42)
[2023-12-03] MEDS: OLANZapine 5 mg TABLET PO (09:42)
[2023-12-03] MEDS: sodium chloride 0.9% 250 ML 75 ML IV (09:42)
[2023-12-03] MEDS: dexamethasone 4 mg/mL INJ 5 mL 12 MG IVP (09:43)
[2023-12-03] MEDS: diphenhydrAMINE 50 mg/mL SDV 1mL 25 MG IVP (09:46)
[2023-12-03] MEDS: palonosetron 0.25 mg/5 mL SDV IVP (09:49)
[2023-12-03] MEDS: famotidine 20 mg/2 mL INJ IVP (09:51)
[2023-12-03] MEDS: fosaprepitant 150 MG in sodium chloride 0.9% 150 ML 300 MG IV (09:56)
[2023-12-03] MEDS: pembrolizumab 200 MG in sodium chloride 0.9% 250 ML 516 MG IV (11:02)
[2023-12-03] MEDS: [UNRECOGNIZED DRUG - REMARK] 260 MG IV (11:52)
[2023-12-03] MEDS: CARBOplatin 630 MG in sodium chloride 0.9% 500 ML 563 MG IV (13:01)
[2023-12-03 14:05] VITALS: BP 147/80; PULSE 78; RESP 16; TEMP 36.1; O2SAT 98
== END 2023-12-03 23:59 | disposition home or self-care (01) ==
PROVIDERS: Internal Medicine Hematology & Oncology; PCP Physician Assistant; Visit Provider Nurse Practitioner Family
DX: Z51.11 Encounter for antineoplastic chemotherapy; Z51.12 Encounter for antineoplastic immunotherapy; C15.5 Malignant neoplasm of lower third of esophagus; Z79.899 Other long term (current) drug therapy; Z53.9 Procedure and treatment not carried out, unspecified reason
CPT/HCPCS: 80053; 82378; 83615; 85025; 96367; 96375; 96413; 96417; A4222; J1100; J1200; J1453; J2469; J3490; J7040; J7050; J9045; J9171; J9271

== ENCOUNTER 2023-12-17 10:30 | Oncology outpatient (recurring) (ONCR) | payer BC, MEDICAID, SELFPAY ==
[2023-12-10 09:55] LABS: Basophils # 0.1 10^3/uL (0.0-0.1); Basophils % 1.9 %; Eosinophils % 1.1 %; Hematocrit 38.8 % (37-53); Lymphocytes # 1.7 10^3/uL (0.8-4.8); Lymphocytes % 63.4 %; Mean Corpuscular HGB Conc 34.3 g/dL (30-55); Mean Corpuscular Hemoglobin 32.2 pg (27-33); Mean Corpuscular Volume 93.9 fl (82-101); Mean Platelet Volume 9.8 fL (7.4-10.4); Monocytes # 0.1 10^3/uL (0.2-0.9); Monocytes % 2.6 %; Neutrophils % 29.9 %; Nucleated Red Blood Cells % 0 %; Platelet Count 249 10^3/cmm (157-399); Red Blood Count 4.13 10^6/uL (3.85-5.65); Red Cell Distribution Width 12.4 % (12.1-15.1); White Blood Count 2.68 10^3/uL (3.29-11.43)
[2023-12-10 10:16] LABS: Alanine Aminotransferase 19 U/L (0-41); Albumin Level 4.2 g/dL (3.5-5.2); Alkaline Phosphatase 109 U/L (40-130); Anion Gap 16.1 (5-19); Aspartate Amino Transferase 17 U/L (0-40); Blood Urea Nitrogen 21 mg/dL (8-23); Calcium 8.8 mg/dL (8.5-10.5); Carbon Dioxide 26 mmol/L (22-29); Chloride 97 mmol/L (98-107); Creatinine Clr Calc Pharmacy 67.0304; Glomerular Filtration Rate 97.3 mL/min (90-130); Glucose 136 mg/dL (65-115); Osmolality Calculated 285 mOsm/kg (285-295); Potassium 4.1 mmol/L (3.5-5.1); Sodium 135 mmol/L (136-145); Total Bilirubin 0.7 mg/dL (0.15-1.2); Total Protein 7.2 g/dL (6.6-8.7)
[2023-12-10 10:40] LABS: Magnesium 1.7 mg/dL (1.7-2.3)
[2023-12-10] MEDS: sodium chloride 0.9% 1,000 ML 75 ML IV (11:56)
[2023-12-10] MEDS: ondansetron 2 mg/ML SDV 2 mL 8 MG IVP (11:58)
[2023-12-10] MEDS: magnesium sulfate premix 2 GM/50 ML PIGGYBACK IV (12:19)
[2023-12-10 13:23] VITALS: BP 122/81; PULSE 73; RESP 16; TEMP 35.9; O2SAT 97
[2023-12-17 11:10] LABS: Basophils # 0.1 10^3/uL (0.0-0.1); Basophils % 2.6 %; Hematocrit 40.4 % (37-53); Lymphocytes # 1.7 10^3/uL (0.8-4.8); Lymphocytes % 50.9 %; Mean Corpuscular HGB Conc 33.7 g/dL (30-55); Mean Corpuscular Hemoglobin 32.6 pg (27-33); Mean Corpuscular Volume 96.9 fl (82-101); Mean Platelet Volume 9.5 fL (7.4-10.4); Monocytes # 0.9 10^3/uL (0.2-0.9); Monocytes % 27.2 %; Neutrophils % 18.4 %; Nucleated Red Blood Cells % 0 %; Platelet Count 266 10^3/cmm (157-399); Red Blood Count 4.17 10^6/uL (3.85-5.65); White Blood Count 3.42 10^3/uL (3.29-11.43)
[2023-12-17 11:25] LABS: Neutrophils # 0.63 10^3/uL (1.8-7.7)
[2023-12-17 11:34] LABS: Slide Review Slide Review Perform
[2023-12-17 11:41] LABS: Alanine Aminotransferase 18 U/L (0-41); Albumin Level 4.2 g/dL (3.5-5.2); Alkaline Phosphatase 109 U/L (40-130); Anion Gap 16.4 (5-19); Aspartate Amino Transferase 16 U/L (0-40); Blood Urea Nitrogen 8 mg/dL (8-23); Carbon Dioxide 26 mmol/L (22-29); Chloride 98 mmol/L (98-107); Globulin 2.6 g/dL (1.3-4.6); Glomerular Filtration Rate 135.6 mL/min (90-130); Glucose 100 mg/dL (65-115); Osmolality Calculated 280 mOsm/kg (285-295); Potassium 4.4 mmol/L (3.5-5.1); Sodium 136 mmol/L (136-145); Total Bilirubin 0.2 mg/dL (0.15-1.2); Total Protein 6.8 g/dL (6.6-8.7)
[2023-12-17 12:05] LABS: Creatinine Clr Calc Pharmacy 89.3739
[2023-12-17 12:39] LABS: Magnesium 1.7 mg/dL (1.7-2.3)
--- NOTE | 2023-12-17 16:05 | PC.NURSE ---
Patient came into the infusion suite for lab draw with Dr Walton orders. Results noitified to Dr Walton with no further orders at this time. Return as scheduled.mario
== END 2023-12-18 23:59 | disposition home or self-care (01) ==
PROVIDERS: Internal Medicine Hematology & Oncology; PCP Physician Assistant; Visit Provider Nurse Practitioner Family
DX: Z53.9 Procedure and treatment not carried out, unspecified reason; C15.5 Malignant neoplasm of lower third of esophagus
CPT/HCPCS: 36415; 36591; 80053; 83735; 85025; 96365; 96375; J2405; J3475; J7030

== ENCOUNTER 2023-12-24 08:58 | Oncology outpatient (recurring) (ONCR) | payer BC, MEDICAID, SELFPAY ==
[2023-12-24 09:22] LABS: Basophils % 0.1 %; Hematocrit 37.7 % (37-53); Lymphocytes # 1.4 10^3/uL (0.8-4.8); Lymphocytes % 8.9 %; Mean Corpuscular Hemoglobin 32.7 pg (27-33); Mean Corpuscular Volume 96.2 fl (82-101); Mean Platelet Volume 9.6 fL (7.4-10.4); Monocytes % 6.5 %; Neutrophils # 12.95 10^3/uL (1.8-7.7); Neutrophils % 83.4 %; Nucleated Red Blood Cells % 0 %; Platelet Count 254 10^3/cmm (157-399); Red Blood Count 3.92 10^6/uL (3.85-5.65); Red Cell Distribution Width 12.8 % (12.1-15.1); White Blood Count 15.54 10^3/uL (3.29-11.43)
[2023-12-24 09:43] LABS: Alanine Aminotransferase 16 U/L (0-41); Albumin Level 4.3 g/dL (3.5-5.2); Alkaline Phosphatase 105 U/L (40-130); Aspartate Amino Transferase 12 U/L (0-40); Blood Urea Nitrogen 15 mg/dL (8-23); Calcium 9.2 mg/dL (8.5-10.5); Carbon Dioxide 25 mmol/L (22-29); Chloride 100 mmol/L (98-107); Creatinine Clr Calc Pharmacy 71.8187; Glomerular Filtration Rate 97.3 mL/min (90-130); Glucose 113 mg/dL (65-115); Osmolality Calculated 286 mOsm/kg (285-295); Sodium 137 mmol/L (136-145); Thyroid Stimulating Hormone 0.53 uIU/mL (0.27-4.20); Total Bilirubin 0.3 mg/dL (0.15-1.2); Total Protein 6.3 g/dL (6.6-8.7)
[2023-12-24 09:46] LABS: Anion Gap 16.3 (5-19); Lactate Dehydrogenase 164 U/L (135-225); Potassium 4.3 mmol/L (3.5-5.1)
[2023-12-24 10:25] LABS: Carcinoembryonic Antigen 5.8 ng/mL (0.0-4.7)
[2023-12-24] MEDS: sodium chloride 0.9% 250 ML 75 ML IV (11:24)
[2023-12-24] MEDS: acetaminophen 325 mg Tablet 650 MG PO (11:24)
[2023-12-24] MEDS: OLANZapine 5 mg TABLET PO (11:25)
[2023-12-24] MEDS: palonosetron 0.25 mg/5 mL SDV IVP (11:25)
[2023-12-24] MEDS: diphenhydrAMINE 50 mg/mL SDV 1mL 25 MG IVP (11:28)
[2023-12-24] MEDS: famotidine 20 mg/2 mL INJ IVP (11:30)
[2023-12-24] MEDS: dexamethasone 4 mg/mL INJ 5 mL 12 MG IVP (11:31)
[2023-12-24] MEDS: fosaprepitant 150 MG in sodium chloride 0.9% 150 ML 300 MG IV (11:51)
[2023-12-24] MEDS: pembrolizumab 200 MG in sodium chloride 0.9% 250 ML 516 MG IV (12:49)
[2023-12-24] MEDS: [UNRECOGNIZED DRUG - REMARK] 260 MG IV (13:21)
[2023-12-24] MEDS: CARBOplatin 580 MG in sodium chloride 0.9% 500 ML 558 MG IV (14:27)
[2023-12-24 15:30] VITALS: BP 151/85; PULSE 52; RESP 16; TEMP 36.4; O2SAT 98
== END 2023-12-24 23:59 | disposition home or self-care (01) ==
PROVIDERS: Internal Medicine Hematology & Oncology; PCP Physician Assistant; Visit Provider Nurse Practitioner Family
DX: C15.5 Malignant neoplasm of lower third of esophagus; R53.83 Other fatigue; R06.02 Shortness of breath; Z51.11 Encounter for antineoplastic chemotherapy; Z51.12 Encounter for antineoplastic immunotherapy; Z79.899 Other long term (current) drug therapy; Z79.52 Long term (current) use of systemic steroids
CPT/HCPCS: 80053; 82378; 83615; 84443; 85025; 96367; 96375; 96413; 96417; A4222; J1100; J1200; J1453; J2469; J3490; J7040; J7050; J9045; J9171; J9271

== ENCOUNTER 2024-01-14 09:30 | Oncology outpatient (recurring) (ONCR) | payer BC, MEDICAID, SELFPAY ==
[2023-12-31 13:45] LABS: Basophils # 0.1 10^3/uL (0.0-0.1); Basophils % 2.3 %; Eosinophils % 0.8 %; Hematocrit 37.9 % (37-53); Lymphocytes # 1.6 10^3/uL (0.8-4.8); Lymphocytes % 60.4 %; Mean Corpuscular HGB Conc 35.1 g/dL (30-55); Mean Corpuscular Hemoglobin 32.7 pg (27-33); Mean Corpuscular Volume 93.1 fl (82-101); Monocytes # 0.1 10^3/uL (0.2-0.9); Monocytes % 3.4 %; Neutrophils % 32.3 %; Nucleated Red Blood Cells % 0 %; Platelet Count 136 10^3/cmm (157-399); Red Blood Count 4.07 10^6/uL (3.85-5.65); Red Cell Distribution Width 11.9 % (12.1-15.1); White Blood Count 2.65 10^3/uL (3.29-11.43)
[2023-12-31 14:00] LABS: Alanine Aminotransferase 17 U/L (0-41); Alkaline Phosphatase 102 U/L (40-130); Aspartate Amino Transferase 14 U/L (0-40); Blood Urea Nitrogen 26 mg/dL (8-23); Calcium 8.8 mg/dL (8.5-10.5); Carbon Dioxide 25 mmol/L (22-29); Chloride 94 mmol/L (98-107); Globulin 2.2 g/dL (1.3-4.6); Glomerular Filtration Rate 167.4 mL/min (90-130); Glucose 93 mg/dL (65-115); Osmolality Calculated 274 mOsm/kg (285-295); Sodium 130 mmol/L (136-145); Total Bilirubin 0.4 mg/dL (0.15-1.2); Total Protein 6.2 g/dL (6.6-8.7)
[2023-12-31 14:19] LABS: Neutrophils # 0.86 10^3/uL (1.8-7.7)
[2024-01-07 13:38] LABS: Basophils # 0.1 10^3/uL (0.0-0.1); Basophils % 1.4 %; Hematocrit 36.8 % (37-53); Lymphocytes % 45.7 %; Mean Corpuscular HGB Conc 33.4 g/dL (30-55); Mean Corpuscular Hemoglobin 32.7 pg (27-33); Mean Corpuscular Volume 97.9 fl (82-101); Mean Platelet Volume 8.7 fL (7.4-10.4); Monocytes % 23.3 %; Neutrophils # 1.18 10^3/uL (1.8-7.7); Neutrophils % 27.5 %; Nucleated Red Blood Cells % 0 %; Platelet Count 201 10^3/cmm (157-399); Red Blood Count 3.76 10^6/uL (3.85-5.65); Red Cell Distribution Width 13.5 % (12.1-15.1); White Blood Count 4.29 10^3/uL (3.29-11.43)
[2024-01-07 13:56] LABS: Alanine Aminotransferase 23 U/L (0-41); Albumin Level 3.9 g/dL (3.5-5.2); Alkaline Phosphatase 104 U/L (40-130); Anion Gap 14.2 (5-19); Aspartate Amino Transferase 23 U/L (0-40); Blood Urea Nitrogen 12 mg/dL (8-23); Carbon Dioxide 27 mmol/L (22-29); Chloride 98 mmol/L (98-107); Globulin 2.7 g/dL (1.3-4.6); Glomerular Filtration Rate 135.6 mL/min (90-130); Glucose 80 mg/dL (65-115); Osmolality Calculated 279 mOsm/kg (285-295); Potassium 4.2 mmol/L (3.5-5.1); Sodium 135 mmol/L (136-145); Total Bilirubin 0.2 mg/dL (0.15-1.2); Total Protein 6.6 g/dL (6.6-8.7)
[2024-01-07 14:15] LABS: Slide Review Slide Review Perform
[2024-01-14 10:06] LABS: Basophils % 0.2 %; Hematocrit 35.6 % (37-53); Lymphocytes % 8.2 %; Mean Corpuscular Hemoglobin 33.2 pg (27-33); Mean Corpuscular Volume 97.5 fl (82-101); Monocytes # 0.6 10^3/uL (0.2-0.9); Monocytes % 5.5 %; Neutrophils # 9.85 10^3/uL (1.8-7.7); Neutrophils % 85.1 %; Nucleated Red Blood Cells % 0 %; Platelet Count 195 10^3/cmm (157-399); Red Blood Count 3.65 10^6/uL (3.85-5.65); Red Cell Distribution Width 13.2 % (12.1-15.1); White Blood Count 11.57 10^3/uL (3.29-11.43)
[2024-01-14 11:07] LABS: Alanine Aminotransferase 20 U/L (0-41); Albumin Level 4.1 g/dL (3.5-5.2); Alkaline Phosphatase 97 U/L (40-130); Anion Gap 17.4 (5-19); Aspartate Amino Transferase 14 U/L (0-40); Blood Urea Nitrogen 12 mg/dL (8-23); Calcium 9.4 mg/dL (8.5-10.5); Carbon Dioxide 23 mmol/L (22-29); Chloride 97 mmol/L (98-107); Creatinine Clr Calc Pharmacy 130.8399; Globulin 2.1 g/dL (1.3-4.6); Glomerular Filtration Rate 167.4 mL/min (90-130); Glucose 114 mg/dL (65-115); Osmolality Calculated 277 mOsm/kg (285-295); Potassium 4.4 mmol/L (3.5-5.1); Sodium 133 mmol/L (136-145); Thyroid Stimulating Hormone 0.28 uIU/mL (0.27-4.20); Total Bilirubin 0.3 mg/dL (0.15-1.2); Total Protein 6.2 g/dL (6.6-8.7)
[2024-01-14] MEDS: sodium chloride 0.9% 250 ML 75 ML IV (12:27)
[2024-01-14] MEDS: acetaminophen 325 mg Tablet 650 MG PO (12:28)
[2024-01-14] MEDS: OLANZapine 5 mg TABLET PO (12:28)
[2024-01-14] MEDS: dexamethasone 4 mg/mL INJ 5 mL 12 MG IVP (12:29)
[2024-01-14] MEDS: palonosetron 0.25 mg/5 mL SDV IVP (12:31)
[2024-01-14] MEDS: diphenhydrAMINE 50 mg/mL SDV 1mL 25 MG IVP (12:32)
[2024-01-14] MEDS: famotidine 20 mg/2 mL INJ IVP (12:33)
[2024-01-14] MEDS: fosaprepitant 150 MG in sodium chloride 0.9% 150 ML 300 MG IV (12:34)
[2024-01-14] MEDS: pembrolizumab 200 MG in sodium chloride 0.9% 250 ML 516 MG IV (13:11)
[2024-01-14] MEDS: [UNRECOGNIZED DRUG - REMARK] 260 MG IV (14:01)
[2024-01-14] MEDS: CARBOplatin 710 MG in sodium chloride 0.9% 500 ML 571 MG IV (15:21)
[2024-01-14 16:34] VITALS: BP 145/76; PULSE 73; RESP 17; TEMP 36.4; O2SAT 98
== END 2024-01-17 23:59 | disposition home or self-care (01) ==
PROVIDERS: PCP Physician Assistant; Visit Provider Nurse Practitioner Family
DX: Z51.12 Encounter for antineoplastic immunotherapy (principal); Z53.9 Procedure and treatment not carried out, unspecified reason; Z51.11 Encounter for antineoplastic chemotherapy; C15.5 Malignant neoplasm of lower third of esophagus; Z79.899 Other long term (current) drug therapy; Z79.52 Long term (current) use of systemic steroids
CPT/HCPCS: 36415; 80053; 84443; 85025; 96367; 96375; 96413; 96417; A4222; J1100; J1200; J1453; J2469; J3490; J7040; J7050; J9045; J9171; J9271

== ENCOUNTER 2024-02-04 09:15 | Oncology outpatient (recurring) (ONCR) | payer BC, MEDICAID, SELFPAY ==
[2024-01-21 14:31] LABS: Basophils % 0.9 %; Eosinophils % 0.5 %; Hematocrit 36.9 % (37-53); Lymphocytes # 1.6 10^3/uL (0.8-4.8); Lymphocytes % 76.6 %; Mean Corpuscular HGB Conc 34.1 g/dL (30-55); Mean Corpuscular Hemoglobin 32.9 pg (27-33); Mean Corpuscular Volume 96.3 fl (82-101); Mean Platelet Volume 9.4 fL (7.4-10.4); Monocytes # 0.1 10^3/uL (0.2-0.9); Monocytes % 4.7 %; Neutrophils % 17.3 %; Nucleated Red Blood Cells % 0 %; Platelet Count 155 10^3/cmm (157-399); Red Blood Count 3.83 10^6/uL (3.85-5.65); Red Cell Distribution Width 12.8 % (12.1-15.1); White Blood Count 2.14 10^3/uL (3.29-11.43)
[2024-01-21 14:54] LABS: Slide Review Slide Review Perform
[2024-01-21 14:55] LABS: Alanine Aminotransferase 24 U/L (0-41); Albumin Level 4.2 g/dL (3.5-5.2); Alkaline Phosphatase 106 U/L (40-130); Anion Gap 16.9 (5-19); Aspartate Amino Transferase 18 U/L (0-40); Blood Urea Nitrogen 17 mg/dL (8-23); Calcium 9.2 mg/dL (8.5-10.5); Carbon Dioxide 25 mmol/L (22-29); Chloride 97 mmol/L (98-107); Globulin 2.6 g/dL (1.3-4.6); Glomerular Filtration Rate 167.4 mL/min (90-130); Glucose 93 mg/dL (65-115); Osmolality Calculated 279 mOsm/kg (285-295); Potassium 4.9 mmol/L (3.5-5.1); Sodium 134 mmol/L (136-145); Total Bilirubin 0.5 mg/dL (0.15-1.2); Total Protein 6.8 g/dL (6.6-8.7)
[2024-01-21 14:57] LABS: Neutrophils # 0.37 10^3/uL (1.8-7.7)
[2024-01-28 10:05] LABS: Basophils % 1.1 %; Hematocrit 34.7 % (37-53); Lymphocytes # 1.5 10^3/uL (0.8-4.8); Lymphocytes % 52.2 %; Mean Corpuscular HGB Conc 33.7 g/dL (30-55); Mean Corpuscular Hemoglobin 33.1 pg (27-33); Mean Platelet Volume 8.6 fL (7.4-10.4); Monocytes # 0.7 10^3/uL (0.2-0.9); Monocytes % 24.1 %; Neutrophils % 21.5 %; Nucleated Red Blood Cells % 0 %; Platelet Count 199 10^3/cmm (157-399); Red Blood Count 3.54 10^6/uL (3.85-5.65); Red Cell Distribution Width 13.9 % (12.1-15.1); White Blood Count 2.78 10^3/uL (3.29-11.43)
[2024-01-28 10:21] LABS: Alanine Aminotransferase 13 U/L (0-41); Albumin Level 3.9 g/dL (3.5-5.2); Alkaline Phosphatase 90 U/L (40-130); Anion Gap 15.2 (5-19); Aspartate Amino Transferase 14 U/L (0-40); Blood Urea Nitrogen 8 mg/dL (8-23); Calcium 9.3 mg/dL (8.5-10.5); Carbon Dioxide 23 mmol/L (22-29); Chloride 99 mmol/L (98-107); Globulin 2.6 g/dL (1.3-4.6); Glomerular Filtration Rate 167.4 mL/min (90-130); Glucose 102 mg/dL (65-115); Osmolality Calculated 275 mOsm/kg (285-295); Potassium 4.2 mmol/L (3.5-5.1); Sodium 133 mmol/L (136-145); Total Bilirubin 0.3 mg/dL (0.15-1.2); Total Protein 6.5 g/dL (6.6-8.7)
[2024-01-28 10:38] LABS: Slide Review Slide Review Perform
[2024-02-04 09:47] LABS: Basophils % 0.2 %; Hematocrit 36.5 % (37-53); Lymphocytes # 1.4 10^3/uL (0.8-4.8); Lymphocytes % 10.8 %; Mean Corpuscular Hemoglobin 33.3 pg (27-33); Mean Corpuscular Volume 98.1 fl (82-101); Mean Platelet Volume 9.2 fL (7.4-10.4); Monocytes % 7.5 %; Neutrophils # 10.46 10^3/uL (1.8-7.7); Neutrophils % 80.3 %; Nucleated Red Blood Cells % 0 %; Platelet Count 234 10^3/cmm (157-399); Red Blood Count 3.72 10^6/uL (3.85-5.65); Red Cell Distribution Width 14.3 % (12.1-15.1); White Blood Count 13.02 10^3/uL (3.29-11.43)
[2024-02-04 10:08] LABS: Alanine Aminotransferase 13 U/L (0-41); Albumin Level 4.3 g/dL (3.5-5.2); Alkaline Phosphatase 104 U/L (40-130); Anion Gap 18.3 (5-19); Aspartate Amino Transferase 13 U/L (0-40); Blood Urea Nitrogen 11 mg/dL (8-23); Calcium 9.6 mg/dL (8.5-10.5); Carbon Dioxide 22 mmol/L (22-29); Chloride 99 mmol/L (98-107); Globulin 2.5 g/dL (1.3-4.6); Glomerular Filtration Rate 135.6 mL/min (90-130); Glucose 124 mg/dL (65-115); Magnesium 1.6 mg/dL (1.7-2.3); Osmolality Calculated 281 mOsm/kg (285-295); Potassium 4.3 mmol/L (3.5-5.1); Sodium 135 mmol/L (136-145); Thyroid Stimulating Hormone 0.34 uIU/mL (0.27-4.20); Total Bilirubin 0.3 mg/dL (0.15-1.2); Total Protein 6.8 g/dL (6.6-8.7)
[2024-02-04] MEDS: sodium chloride 0.9% 250 ML 75 ML IV (12:25)
[2024-02-04] MEDS: acetaminophen 325 mg Tablet 650 MG PO (12:26)
[2024-02-04] MEDS: OLANZapine 5 mg TABLET PO (12:27)
[2024-02-04] MEDS: famotidine 20 mg/2 mL INJ IVP (12:28)
[2024-02-04] MEDS: diphenhydrAMINE 50 mg/mL SDV 1mL 25 MG IVP (12:31)
[2024-02-04] MEDS: palonosetron 0.25 mg/5 mL SDV IVP (12:33)
[2024-02-04] MEDS: dexamethasone 4 mg/mL INJ 5 mL 12 MG IVP (12:37)
[2024-02-04] MEDS: fosaprepitant 150 MG in sodium chloride 0.9% 150 ML 300 MG IV (12:41)
[2024-02-04] MEDS: pembrolizumab 200 MG in sodium chloride 0.9% 250 ML 516 MG IV (13:18)
[2024-02-04] MEDS: [UNRECOGNIZED DRUG - REMARK] 260 MG IV (13:51)
[2024-02-04] MEDS: CARBOPLATIN IV (14:59)
[2024-02-04] MEDS: SODIUM CHLORIDE 0.9% IV (14:59)
[2024-02-04 16:25] VITALS: BP 137/76; PULSE 67; RESP 16; TEMP 35.8; O2SAT 99
== END 2024-02-04 23:59 | disposition home or self-care (01) ==
PROVIDERS: Internal Medicine; PCP Physician Assistant; Visit Provider Nurse Practitioner Family
DX: Z53.9 Procedure and treatment not carried out, unspecified reason (principal); Z51.11 Encounter for antineoplastic chemotherapy; Z51.12 Encounter for antineoplastic immunotherapy; C15.5 Malignant neoplasm of lower third of esophagus; Z79.899 Other long term (current) drug therapy; Z79.52 Long term (current) use of systemic steroids
CPT/HCPCS: 36415; 80053; 83735; 84443; 85025; 96367; 96375; 96413; 96417; A4222; J1100; J1200; J1453; J2469; J3490; J7040; J7050; J9045; J9171; J9271

== ENCOUNTER 2024-02-17 08:30 | Oncology outpatient (recurring) (ONCR) | payer BC, MEDICAID, SELFPAY ==
[2024-02-17 08:45] LABS: Basophils # 0.1 10^3/uL (0.0-0.1); Basophils % 1.4 %; Hematocrit 35.3 % (37-53); Lymphocytes # 1.7 10^3/uL (0.8-4.8); Lymphocytes % 49.4 %; Mean Corpuscular HGB Conc 33.4 g/dL (30-55); Mean Corpuscular Hemoglobin 33.1 pg (27-33); Mean Corpuscular Volume 99.2 fl (82-101); Mean Platelet Volume 9.2 fL (7.4-10.4); Monocytes % 28.2 %; Neutrophils % 19.6 %; Nucleated Red Blood Cells % 0 %; Platelet Count 197 10^3/cmm (157-399); Red Blood Count 3.56 10^6/uL (3.85-5.65); White Blood Count 3.48 10^3/uL (3.29-11.43)
[2024-02-17 08:58] LABS: Alanine Aminotransferase 10 U/L (0-41); Alkaline Phosphatase 103 U/L (40-130); Aspartate Amino Transferase 13 U/L (0-40); Blood Urea Nitrogen 6 mg/dL (8-23); Calcium 9.1 mg/dL (8.5-10.5); Carbon Dioxide 24 mmol/L (22-29); Chloride 99 mmol/L (98-107); Globulin 2.7 g/dL (1.3-4.6); Glomerular Filtration Rate 113.5 mL/min (90-130); Glucose 115 mg/dL (65-115); Osmolality Calculated 279 mOsm/kg (285-295); Sodium 135 mmol/L (136-145); Total Bilirubin 0.3 mg/dL (0.15-1.2); Total Protein 6.7 g/dL (6.6-8.7)
[2024-02-17 09:07] LABS: Neutrophils # 0.68 10^3/uL (1.8-7.7)
== END 2024-02-17 23:59 | disposition home or self-care (01) ==
PROVIDERS: Internal Medicine; PCP Physician Assistant; Visit Provider Nurse Practitioner Family
DX: C15.5 Malignant neoplasm of lower third of esophagus; Z53.9 Procedure and treatment not carried out, unspecified reason; D70.1 Agranulocytosis secondary to cancer chemotherapy; T45.1X5A Adverse effect of antineoplastic and immunosuppressive drugs, initial encounter; X58.XXXA Exposure to other specified factors, initial encounter
CPT/HCPCS: 36415; 80053; 85025

== ENCOUNTER 2024-03-19 11:00 | Oncology outpatient (recurring) (ONCR) | payer MEDICARE, MEDICAID, SELFPAY ==
[2024-02-24 15:39] LABS: Basophils # 0.1 10^3/uL (0.0-0.1); Basophils % 0.9 %; Eosinophils % 0.3 %; Hematocrit 37.7 % (37-53); Lymphocytes # 1.9 10^3/uL (0.8-4.8); Lymphocytes % 27.7 %; Mean Corpuscular HGB Conc 33.7 g/dL (30-55); Mean Corpuscular Hemoglobin 33.4 pg (27-33); Mean Corpuscular Volume 99.2 fl (82-101); Mean Platelet Volume 8.6 fL (7.4-10.4); Monocytes % 14.3 %; Neutrophils # 3.95 10^3/uL (1.8-7.7); Neutrophils % 56.2 %; Nucleated Red Blood Cells % 0 %; Platelet Count 248 10^3/cmm (157-399); Red Cell Distribution Width 14.8 % (12.1-15.1); White Blood Count 7.01 10^3/uL (3.29-11.43)
[2024-02-24] MEDS: iohexol 350 mg/mL 500 mL Btl (per mL) PO (15:43)
[2024-02-24 16:08] LABS: Alanine Aminotransferase 9 U/L (0-41); Albumin Level 4.3 g/dL (3.5-5.2); Alkaline Phosphatase 109 U/L (40-130); Anion Gap 17.4 (5-19); Aspartate Amino Transferase 15 U/L (0-40); Blood Urea Nitrogen 13 mg/dL (8-23); Carbon Dioxide 25 mmol/L (22-29); Chloride 98 mmol/L (98-107); Globulin 2.6 g/dL (1.3-4.6); Glomerular Filtration Rate 135.6 mL/min (90-130); Glucose 89 mg/dL (65-115); Lactate Dehydrogenase 157 U/L (135-225); Magnesium 1.7 mg/dL (1.7-2.3); Osmolality Calculated 282 mOsm/kg (285-295); Potassium 4.4 mmol/L (3.5-5.1); Sodium 136 mmol/L (136-145); Thyroid Stimulating Hormone 0.38 uIU/mL (0.27-4.20); Total Bilirubin 0.4 mg/dL (0.15-1.2); Total Protein 6.9 g/dL (6.6-8.7)
--- NOTE | 2024-02-24 16:30 | CT_ITS ---
WS: [id number] CT CHEST, ABDOMEN AND PELVIS WITH CONTRAST HISTORY: adenocarcinoma of lower esophagus TECHNIQUE: Contiguous 5 mm axial imaging performed through the chest, abdomen and pelvis with IV cont rast, oral contrast has been provided. Coronal and sagittal reformats chest. Coronal and sagittal ref ormats through the abdomen and pelvis. All CT scans at [facility] use at least one of these d ose optimization techniques: automated exposure control; mA and/or kV adjustment per patient size (in cludes targeted exams where dose is matched to clinical indication); or iterative reconstruction. CONTRAST: Omnipaque 350; 100 mL IV. DLP: 476.93 mGy.cm COMPARISON: CT 10/15/2023, 05/26/2023, 06/03/[address]: Advanced centrilobular emphysema. Progression of metastatic involvement of the pleura and R IGHT chest wall which has been previously described. Pleural thickening is along the anterolateral RI GHT lower lung field. New enhancing nodule measuring 2.4 x 1.5 cm in the intercostal muscles between T7 and T8. This nodule in the intercostal region is destroying and invading the seventh rib. Addition al pleural thickening extending into the intercostal muscles. Enhancing pleural nodule anteriorly madhu sures 1.1 cm. Additional pleural thickening extends laterally and inferiorly. Pleural nodularity exte nds into the costophrenic angle. Small mediastinal and hilar lymph nodes have decreased in size since 10/15/2023. Previously described RIGHT junctional zone mass is no longer present. Heart size is normal. Mild but improved distal esoph ageal circumferential thickening. Abdomen CT: Normal liver and spleen. Normal gallbladder. Normal portal vein. Mild thickening of the L EFT adrenal gland was described on 10/15/2023. This thickening is now a solid mass measuring 2.4 x 1.1 cm. The RIGHT adrenal gland is negative. No renal obstruction. No GI tract obstruction. Several small lymph nodes are noted at the GE junction and along the lesser curvature with the larges t measuring 11 mm. New since 05/26/2023. No mesenteric lymph nodes. No retroperitoneal lymph nodes. Pelvic CT: No free fluid. No bladder wall mass. Increase in thoracic kyphosis. CT/CT chest abdpel w/*[id number] IMPRESSION: 1. Improved circumferential wall thickening of the distal esophagus. Mild esop hageal wall thickening persist. 2. Progression of pleural metastatic disease with invasion into the intercosta l muscles along the RIGHT mid to lower chest wall. There is a new soft tissue n odule invading the seventh rib. Extensive pleural thickening has progressed sin ce 10/15/2023. 3. New LEFT adrenal metastatic nodule, 2.4 x 1.1 cm. 4. No metastatic disease to the liver. 5. Centrilobular emphysema. 6. New small lymph nodes near the GE junction and lesser curvature of the stom ach. Suspicious for metastatic lymph nodes. 7. No ascites. 8. Chronic emphysema.
[2024-02-24] MEDS: iohexol 350 mg/mL 500 mL Btl (per mL) IV (16:47)
[2024-03-10 07:57] LABS: Basophils # 0.1 10^3/uL (0.0-0.1); Basophils % 1.1 %; Eosinophils # 0.2 10^3/uL (0.0-0.8); Hematocrit 37.4 % (37-53); Lymphocytes # 1.6 10^3/uL (0.8-4.8); Lymphocytes % 25.4 %; Mean Corpuscular HGB Conc 33.4 g/dL (30-55); Mean Corpuscular Hemoglobin 33.8 pg (27-33); Mean Corpuscular Volume 101.1 fl (82-101); Mean Platelet Volume 9.1 fL (7.4-10.4); Monocytes # 0.8 10^3/uL (0.2-0.9); Monocytes % 12.1 %; Neutrophils # 3.69 10^3/uL (1.8-7.7); Neutrophils % 57.9 %; Nucleated Red Blood Cells % 0 %; Platelet Count 224 10^3/cmm (157-399); Red Cell Distribution Width 14.9 % (12.1-15.1); White Blood Count 6.37 10^3/uL (3.29-11.43)
[2024-03-10 08:19] LABS: Carcinoembryonic Antigen 5.8 ng/mL (0.0-4.7)
[2024-03-10 08:30] LABS: Alanine Aminotransferase 8 U/L (0-41); Albumin Level 4.2 g/dL (3.5-5.2); Alkaline Phosphatase 101 U/L (40-130); Anion Gap 16.3 (5-19); Aspartate Amino Transferase 13 U/L (0-40); Blood Urea Nitrogen 10 mg/dL (8-23); Calcium 9.2 mg/dL (8.5-10.5); Carbon Dioxide 22 mmol/L (22-29); Chloride 100 mmol/L (98-107); Creatinine Clr Calc Pharmacy 81.6438; Globulin 2.5 g/dL (1.3-4.6); Glomerular Filtration Rate 135.2 mL/min (90-130); Glucose 115 mg/dL (65-115); Lactate Dehydrogenase 158 U/L (135-225); Magnesium 1.7 mg/dL (1.7-2.3); Osmolality Calculated 278 mOsm/kg (285-295); Potassium 4.3 mmol/L (3.5-5.1); Sodium 134 mmol/L (136-145); Total Bilirubin 0.4 mg/dL (0.15-1.2); Total Protein 6.7 g/dL (6.6-8.7)
[2024-03-17] MEDS: dexamethasone 4 mg/mL INJ 5 mL 12 MG IVP (10:31)
[2024-03-17] MEDS: dextrose 5% 250 ML 50 ML IV (10:31)
[2024-03-17] MEDS: palonosetron 0.25 mg/5 mL SDV IVP (10:34)
[2024-03-17] MEDS: irinotecan 300 MG in dextrose 5% 250 ML 176.67 MG IV (11:20)
[2024-03-17] MEDS: leucovorin 660 MG in dextrose 5% 250 ML 166.67 MG IV (11:20)
[2024-03-17] MEDS: atropine 1 mg/mL SDV 1 mL 0.4 MG IV (11:20)
[2024-03-17] MEDS: fluorouraciL 50 mg/ml MDV 100 mL 660 MG IVP (13:00)
[2024-03-17] MEDS: fluorouraciL 3,950 MG, elastomeric pump 1 PUMP in sodium chloride 0.9% (100 ml) 13 ML IV (13:07)
[2024-03-17 13:18] VITALS: BP 115/77; PULSE 70; TEMP 36.6; O2SAT 97
[2024-03-19 10:46] VITALS: BP 126/80; PULSE 90; RESP 16; TEMP 36.6; O2SAT 98
== END 2024-03-19 23:59 | disposition home or self-care (01) ==
PROVIDERS: PCP Physician Assistant; Visit Provider Internal Medicine
DX: Z53.9 Procedure and treatment not carried out, unspecified reason (principal); Z45.1 Encounter for adjustment and management of infusion pump
CPT/HCPCS: 36591; 71260; 74177; 80053; 82378; 83615; 83735; 84443; 85025; 96368; 96375; 96411; 96413; 96415; 96416; 96523; 99214; 99215; J0461; J0640; J1100; J2469; J7060; J9190; J9206

== ENCOUNTER 2024-04-14 09:15 | Oncology outpatient (recurring) (ONCR) | payer MEDICARE, MEDICAID, SELFPAY ==
[2024-03-24 08:37] LABS: Basophils # 0.1 10^3/uL (0.0-0.1); Basophils % 1.7 %; Eosinophils # 0.1 10^3/uL (0.0-0.8); Hematocrit 38.3 % (37-53); Lymphocytes # 1.8 10^3/uL (0.8-4.8); Lymphocytes % 39.8 %; Mean Corpuscular HGB Conc 34.2 g/dL (30-55); Mean Corpuscular Hemoglobin 34.4 pg (27-33); Mean Corpuscular Volume 100.5 fl (82-101); Mean Platelet Volume 9.5 fL (7.4-10.4); Monocytes # 0.3 10^3/uL (0.2-0.9); Monocytes % 6.5 %; Neutrophils # 2.27 10^3/uL (1.8-7.7); Neutrophils % 49.3 %; Nucleated Red Blood Cells % 0 %; Platelet Count 194 10^3/cmm (157-399); Red Blood Count 3.81 10^6/uL (3.85-5.65); Red Cell Distribution Width 13.2 % (12.1-15.1)
[2024-03-24 09:04] LABS: Alanine Aminotransferase 8 U/L (0-41); Albumin Level 4.3 g/dL (3.5-5.2); Alkaline Phosphatase 99 U/L (40-130); Anion Gap 14.7 (5-19); Aspartate Amino Transferase 10 U/L (0-40); Blood Urea Nitrogen 17 mg/dL (8-23); Calcium 9.5 mg/dL (8.5-10.5); Carbon Dioxide 26 mmol/L (22-29); Chloride 99 mmol/L (98-107); Creatinine Clr Calc Pharmacy 69.6927; Globulin 2.8 g/dL (1.3-4.6); Glomerular Filtration Rate 113.2 mL/min (90-130); Glucose 117 mg/dL (65-115); Osmolality Calculated 285 mOsm/kg (285-295); Potassium 3.7 mmol/L (3.5-5.1); Sodium 136 mmol/L (136-145); Total Bilirubin 0.6 mg/dL (0.15-1.2); Total Protein 7.1 g/dL (6.6-8.7)
[2024-03-31 10:07] LABS: Basophils % 0.8 %; Eosinophils # 0.1 10^3/uL (0.0-0.8); Hematocrit 35.7 % (37-53); Lymphocytes # 1.4 10^3/uL (0.8-4.8); Lymphocytes % 27.6 %; Mean Corpuscular HGB Conc 32.8 g/dL (30-55); Mean Corpuscular Hemoglobin 33.3 pg (27-33); Mean Corpuscular Volume 101.7 fl (82-101); Mean Platelet Volume 9.4 fL (7.4-10.4); Monocytes # 0.6 10^3/uL (0.2-0.9); Monocytes % 11.4 %; Neutrophils # 2.84 10^3/uL (1.8-7.7); Neutrophils % 57.8 %; Nucleated Red Blood Cells % 0 %; Platelet Count 198 10^3/cmm (157-399); Red Blood Count 3.51 10^6/uL (3.85-5.65); Red Cell Distribution Width 13.5 % (12.1-15.1); White Blood Count 4.92 10^3/uL (3.29-11.43)
[2024-03-31 10:24] LABS: Alanine Aminotransferase 8 U/L (0-41); Albumin Level 3.9 g/dL (3.5-5.2); Alkaline Phosphatase 109 U/L (40-130); Anion Gap 12.3 (5-19); Aspartate Amino Transferase 10 U/L (0-40); Blood Urea Nitrogen 9 mg/dL (8-23); Calcium 9.2 mg/dL (8.5-10.5); Carbon Dioxide 27 mmol/L (22-29); Chloride 102 mmol/L (98-107); Creatinine Clr Calc Pharmacy 81.1714; Globulin 2.5 g/dL (1.3-4.6); Glomerular Filtration Rate 113.2 mL/min (90-130); Glucose 101 mg/dL (65-115); Osmolality Calculated 283 mOsm/kg (285-295); Potassium 4.3 mmol/L (3.5-5.1); Sodium 137 mmol/L (136-145); Total Bilirubin 0.3 mg/dL (0.15-1.2); Total Protein 6.4 g/dL (6.6-8.7)
[2024-03-31] MEDS: dextrose 5% 250 ML 75 ML IV (11:32)
[2024-03-31] MEDS: aprepitant 130 mg/18 ml SDV IVP (11:33)
[2024-03-31] MEDS: famotidine 20 mg/2 mL INJ IVP (11:40)
[2024-03-31] MEDS: palonosetron 0.25 mg/5 mL SDV IVP (11:43)
[2024-03-31] MEDS: dexamethasone 4 mg/mL INJ 5 mL 12 MG IVP (11:46)
[2024-03-31] MEDS: atropine 1 mg/mL SDV 1 mL 0.4 MG IV (12:18)
[2024-03-31] MEDS: leucovorin 660 MG in dextrose 5% 250 ML 166.67 MG IV (12:30)
[2024-03-31] MEDS: irinotecan 300 MG in dextrose 5% 250 ML 176.67 MG IV (12:30)
[2024-03-31] MEDS: fluorouraciL 50 mg/ml MDV 100 mL 660 MG IVP (14:14)
[2024-03-31] MEDS: fluorouraciL 3,950 MG, elastomeric pump 1 PUMP in sodium chloride 0.9% (100 ml) 13 ML IV (14:15)
[2024-03-31 14:22] VITALS: BP 107/70; PULSE 73; RESP 18; TEMP 36.8; O2SAT 95
[2024-04-02 10:54] VITALS: BP 104/68; PULSE 77; RESP 18; TEMP 36.4; O2SAT 96
[2024-04-02 11:21] VITALS: BP 104/68; PULSE 77; RESP 18; TEMP 36.4; O2SAT 96
[2024-04-14 09:47] LABS: Basophils # 0.1 10^3/uL (0.0-0.1); Eosinophils # 0.1 10^3/uL (0.0-0.8); Eosinophils % 1.5 %; Hematocrit 35.3 % (37-53); Lymphocytes # 1.7 10^3/uL (0.8-4.8); Lymphocytes % 35.7 %; Mean Corpuscular Hemoglobin 34.3 pg (27-33); Mean Corpuscular Volume 100.9 fl (82-101); Mean Platelet Volume 9.2 fL (7.4-10.4); Monocytes # 0.7 10^3/uL (0.2-0.9); Monocytes % 13.9 %; Neutrophils # 2.29 10^3/uL (1.8-7.7); Neutrophils % 47.5 %; Nucleated Red Blood Cells % 0 %; Platelet Count 200 10^3/cmm (157-399); Red Cell Distribution Width 13.2 % (12.1-15.1); White Blood Count 4.82 10^3/uL (3.29-11.43)
[2024-04-14 10:13] LABS: Carcinoembryonic Antigen 5.4 ng/mL (0.0-4.7)
[2024-04-14 10:24] LABS: Alanine Aminotransferase 8 U/L (0-41); Alkaline Phosphatase 121 U/L (40-130); Aspartate Amino Transferase 10 U/L (0-40); Blood Urea Nitrogen 9 mg/dL (8-23); Calcium 9.1 mg/dL (8.5-10.5); Carbon Dioxide 24 mmol/L (22-29); Chloride 103 mmol/L (98-107); Creatinine Clr Calc Pharmacy 68.5117; Globulin 2.6 g/dL (1.3-4.6); Glomerular Filtration Rate 113.2 mL/min (90-130); Glucose 112 mg/dL (65-115); Osmolality Calculated 287 mOsm/kg (285-295); Sodium 139 mmol/L (136-145); Total Bilirubin 0.3 mg/dL (0.15-1.2); Total Protein 6.6 g/dL (6.6-8.7)
== END 2024-04-16 23:59 | disposition home or self-care (01) ==
PROVIDERS: Nurse Practitioner; PCP Physician Assistant; Visit Provider Internal Medicine
DX: Z53.9 Procedure and treatment not carried out, unspecified reason; C15.5 Malignant neoplasm of lower third of esophagus; C78.2 Secondary malignant neoplasm of pleura; D70.1 Agranulocytosis secondary to cancer chemotherapy; Z87.891 Personal history of nicotine dependence; T45.1X5A Adverse effect of antineoplastic and immunosuppressive drugs, initial encounter; K21.9 Gastro-esophageal reflux disease without esophagitis; Z95.828 Presence of other vascular implants and grafts; R06.02 Shortness of breath; G89.3 Neoplasm related pain (acute) (chronic)
CPT/HCPCS: 36415; 36591; 80053; 82378; 85025; 96368; 96375; 96411; 96413; 96415; 96416; 96523; 99213; 99214; J0185; J0461; J0640; J1100; J2469; J3490; J7060; J9190; J9206

== ENCOUNTER 2024-06-09 12:46 | Oncology outpatient (recurring) (ONCR) | payer MEDICARE, MEDICAID, SELFPAY ==
--- NOTE | 2024-05-27 10:11 | N.ONRAD NP_ITS ---
Radiation Oncology New Patient Visit Patient: Sarkis William MR#: [id number] : 1960 Age: 64 Sex: Male Dictated by: Dr. 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 Radiotherapy to date: Summary > No prior radiation therapy. Chief Complaint / History of Present Illness: Noted difficulty swallowing early 2023. Found to have esophageal mass. Bx adenocarcinoma. PET/CT 05/2023 mass with uptake in right mediastinum adjacent to esophagus, lower esophageal mass right pleural effusion with uptake in medial aspect of effusion. Thoracentesis done. Pleural effusion cytology was negative. Chemotherapy given: # metastatic esophageal cancer. Adenocarcinoma. MMR proficient, HER2-berhane 1+ negative by IHC. PD-L1 positive with a CPS score of 5. Diagnosed 04/14/23. - initially treated with [id number] + Pembrolizumab x 3 cycles from 08/19/23 - 10/03/23, then stopped due to disease progression. ??? then carboplatin docetaxel pembrolizumab x 4 cycles, from 12/03/2023 - 02/04/24, then stopped due to disease progression on pleural mets, adrenal mets on CT scans 02/24/2024 - Palliative FOLFIRI x 2 cycles from 03/17/2024 - 04/02/24, then stopped per patient wish, due to ongoing fatigue, exhaustion, feeling miserable. -Best supportive care, from 04/14/2024. Swallowing did improve following chemo. Now able to eat all foods with no limitations Overall weight loss 145 to 113 pounds now. 3 weeks of progressive right lateral chest wall pain with palpable mass with initial improvement of pain with oxycodone. Now rx Fentanyl patch 25 mcg/hr which will start today or tomorrow. Oxycodone now not effective. Pain is 9 on 10 scale. Wants to be active but limited by pain. Some constipation and using stool softener. Smoking less. Now ??? to ??? ppd. . Lives alone. Brother and mother provide support and live nearby. CT chest 02/2024 mass in lateral inferior chest wall abutting diaphragm. Secondary right posterior chest mass. No pleural effusion. No esophageal or para-esophageal masses seen. Liver ok. Left adrenal mass consistent with met. Current Medications: dexamethasone 8 mg (2 x 4 mg) PO BID famotidine 20 mg PO BID levofloxacin 500 mg PO DAILY 7 days lorazepam 0.5 - 1 mg (0.5 - 1 x 1 mg) PO Q6H PRN omeprazole 20 mg PO DAILY ondansetron 4 mg PO Q6H PRN oxycodone 40 mg (2 x 20 mg) PO Q8H 30 days prochlorperazine maleate (Compazine) 10 mg PO Q4H PRN scopolamine base 1 patch transdermal Q3D PRN tamsulosin mg PO Allergies: No Known Allergies Allergy Medical History: No history of collagen vascular disease. No previous radiation therapy. Adenocarcinoma of lower esophagus COPD (chronic obstructive pulmonary disease) GERD (gastroesophageal reflux disease Surgical History: Port-A-Cath in place History of esophagogastroduodenoscopy (04/14/23) History of vasectomy Family History: Brother Lung cancer Mother Diabetes Social History: . 3 x in the past 3 children from first marriage No ontact with children. Smoking and tobacco/nicotine status: Still smoking . Smoked from age 15 to current time. Alcohol intake: current Alcohol intake frequency: 0-2 Drinks per Day Alcohol type: beer Substance/Drug Use: never Current Complaints / Review of Systems: . Vital Signs: Performed on 05/27/2024 8:45 AM BMI - 17.698 kg/m2 (low), Height - 67 in, Weight - 113 lbs, Temperature - 97.2 f, Pulse - 80 /min, Respiration - 16 /min, O2 Sat - 97 %, Pain - 9, Fatigue - 0 and BP - 142/ 79 mm(hg)(high/). Physical Exam: Thin, pleasant conversant in NAD. No cervical adenopathy. Port in right chest. Right lateral chest wall mass 4 x 2 cm fixed mildly tender to light palpation. No pedal edema. Performance Status: ECOG PS 1 Pathology: See above Lab: no new labs Imaging: See HPI Impression: Symptomatic progression of esophageal carcinoma at right lateral chest wall. Good response at primary site with improved swallowing. Plan 25 Gy in 5 fraction to right lateral chest wall to improve pain control. Plan: Signed by: 05/27/2024 10:09:53 AM <<Signature on File>> Time spent with patient: 60 minutes CPT Code: * CPT Code: *
--- NOTE | 2024-06-08 17:01 | ONCRAD TMN_ITS ---
Radiation Oncology Weekly Treatment Management Patient: Sarkis William MR#: [id number] : 1960 Attending Physician: Dr. Ronald Kramer Date of Service: 06/08/2024 Referring Physician(s) : Diagnosis: Radiotherapy to date: Course: Rt Rib 2024, Site: Rt Rib 25Gy, Ref. ID: [id number], Energy: 15X/6X, Dose/Fx (cGy): 500, #Fx: 4 / 5, Dose Correction (cGy): 0, Total Dose Delivered (cGy): 2,000, Start Date: 06/03/2024, Elapsed Days: 5 Reason for visit: The patient is being seen today as part of their regularly scheduled weekly on treatment visits to assess for acute toxicities from radiotherapy. Review of Systems: Sleepy after first treatment. Minimal reduction of pain thus far. Poor appetite. Using stool softener. Vital Signs: Performed on 06/08/2024 12:59 PM BMI - 17.229 kg/m2 (low), Height - 67 in, Weight - 110.0 lbs, Temperature - 97.6 f, Pulse - 89 /min, Respiration - 17 /min, O2 Sat - 97 %, Pain - 8, Fatigue - 0 and BP - 119/ 77 mm(hg). Physical Exam: Imaging: Radiation therapy imaging related to accurate target localization (i.e. KV, MV and CBCT) was reviewed. Appropriate changes, if any, were made to ensure treatment accuracy. Plan: Good tolerance of treatment. Continue treatment. Signed by: Dr. Ronald Kramer 06/08/2024 5:00:29 PM
== END 2024-06-16 23:59 | disposition home or self-care (01) ==
PROVIDERS: PCP Physician Assistant; Visit Provider Radiology Radiation Oncology
DX: Z51.0 Encounter for antineoplastic radiation therapy (principal); C15.5 Malignant neoplasm of lower third of esophagus; C79.72 Secondary malignant neoplasm of left adrenal gland; C79.51 Secondary malignant neoplasm of bone
CPT/HCPCS: 77280; 77290; 77295; 77300; 77334; 77336; 77387; 77412; 96523; 99024; 99205

== ENCOUNTER 2024-06-23 11:30 | Oncology outpatient (recurring) (ONCR) | payer MEDICARE, MEDICAID, SELFPAY ==
[2024-06-21] MEDS: iohexol 350 mg/mL 500 mL Btl (per mL) PO (15:54)
--- NOTE | 2024-06-21 16:00 | CT_ITS ---
WS: [id number] CT CHEST, ABDOMEN AND PELVIS WITH CONTRAST HISTORY: adenocarcinoma of lower esophagus TECHNIQUE: Contiguous 5 mm axial imaging performed through the chest, abdomen and pelvis IV contrast, oral contrast has been provided. Coronal and sagittal reformats chest. Coronal and sagittal reformats through the abdomen and pelvis. All CT scans at [facility] use at least one of these dose optimization techniques: automated exposure control; mA and/or kV adjustment per patient size (includes targeted exams where dose is matched to clinical indication); or iterative reconstruction. CONTRAST: Omnipaque 350; 100 mL IV. DLP: 462.96 mGy.cm COMPARISON: 02/24/2024, 05/26/[address]: Hyperinflated lungs with centrilobular and paraseptal emphysema. RIGHT pleural based metastatic nodules are reidentified along with loculated pleural fluid at the site of the metastatic deposits. The largest deposit measures 9.3 x 0.9 cm. More anterior deposit measures 2.1 x 1.0 cm. Both of these pleural metastatic sites have progressed. Loculated pleural fluid adjacent to these pleural deposits with peripheral enhancement. There is an intercostal muscle enhancing nodule measuring 2.7 x 2.0 cm which was described previously and also increased in size. Intercostal muscle nodule between the seventh and eighth ribs. New 1.7 cm nodule along the RIGHT diaphragmatic surface between the liver and the diaphragm. No significant change in appearance of the esophagus. No recurrent mass or obstruction. Heart is normal size. Stable small but indeterminate bilateral hilar lymph nodes measuring up to 10 mm. Normal size aorta. RIGHT IJ Port-A-Cath. Abdomen CT: Normal size liver. New intrahepatic duct dilatation common bile duct is increased in size now measuring 9.8 mm. No obstructing mass or calcification identified. Pancreatic duct is not dilated. No metastatic nodules in the liver. The portal vein appears appropriate. Gallbladder is contracted. Negative spleen. No pancreatic abnormality. Moderate atherosclerotic plaque abdominal aorta. Mesenteric arteries are normally enhancing. No renal obstruction. Cortical cysts. No RIGHT adrenal gland mass. LEFT adrenal gland enlarged measuring 5.4 x 2.9 cm. LEFT adrenal gland metastatic disease has progressed. New metastatic nodule measuring 2.1 cm near the celiac axis. Stomach is well distended with oral contrast. Moderate diffuse constipation. Pelvic CT: Urinary bladder is well distended. No free fluid in the pelvis. No metastatic sites. No bone metastasis identified. CT/CT chest abdpel w/*[id number] IMPRESSION: 1. Progression of RIGHT pleural-based metastasis and malignant associated pleu ral effusion. The largest pleural metastatic nodules 9.3 x 0.9 cm. 2. Increase in size of the intercostal muscle metastatic site between the RIGH T seventh and eighth ribs. 3. New 1.7 cm metastatic nodule along the RIGHT diaphragmatic surface, between the liver and the diaphragm. 4. Increasing LEFT adrenal metastatic site. 5. Increasing metastatic nodule near the celiac axis measures 2.1 cm. This nod ule was subcentimeter on the prior study. 6. Centrilobular and paraseptal emphysema. 7. Indeterminate but small and stable bilateral hilar lymph nodes. 8. No recurrent distal esophageal wall thickening. 9. No metastatic disease within the liver. 10. New intrahepatic duct dilatation. Common bile duct is now dilated to 9.8 m m. Cause of the obstruction is not apparent. MRCP may provide additional inform ation.
[2024-06-21] MEDS: iohexol 350 mg/mL 500 mL Btl (per mL) IV (17:06)
[2024-06-23 11:36] LABS: Basophils # 0.1 10^3/uL (0.0-0.1); Basophils % 1.6 %; Eosinophils # 0.1 10^3/uL (0.0-0.8); Eosinophils % 1.8 %; Hematocrit 40.8 % (37-53); Lymphocytes # 1.9 10^3/uL (0.8-4.8); Lymphocytes % 30.7 %; Mean Corpuscular HGB Conc 33.1 g/dL (30-55); Mean Corpuscular Volume 93.8 fl (82-101); Mean Platelet Volume 9.5 fL (7.4-10.4); Monocytes # 0.6 10^3/uL (0.2-0.9); Monocytes % 9.1 %; Neutrophils # 3.52 10^3/uL (1.8-7.7); Neutrophils % 56.5 %; Nucleated Red Blood Cells % 0 %; Platelet Count 254 10^3/cmm (157-399); Red Blood Count 4.35 10^6/uL (3.85-5.65); Red Cell Distribution Width 12.6 % (12.1-15.1); White Blood Count 6.23 10^3/uL (3.29-11.43)
[2024-06-23 11:54] LABS: Alanine Aminotransferase 10 U/L (0-41); Albumin Level 3.9 g/dL (3.5-5.2); Alkaline Phosphatase 131 U/L (40-130); Anion Gap 15.8 (5-19); Aspartate Amino Transferase 13 U/L (0-40); Blood Urea Nitrogen 8 mg/dL (8-23); Calcium 9.3 mg/dL (8.5-10.5); Carbon Dioxide 25 mmol/L (22-29); Chloride 97 mmol/L (98-107); Creatinine Clr Calc Pharmacy 63.7865; Globulin 3.1 g/dL (1.3-4.6); Glucose 101 mg/dL (65-115); Lactate Dehydrogenase 132 U/L (135-225); Osmolality Calculated 276 mOsm/kg (285-295); Potassium 3.8 mmol/L (3.5-5.1); Sodium 134 mmol/L (136-145); Total Bilirubin 0.5 mg/dL (0.15-1.2)
[2024-06-25 11:16] LABS: Carcinoembryonic Antigen 5.4 ng/mL (0.0-4.7)
== END 2024-07-17 23:59 | disposition home or self-care (01) ==
PROVIDERS: PCP Physician Assistant; Visit Provider Internal Medicine
DX: C15.5 Malignant neoplasm of lower third of esophagus (principal); C78.2 Secondary malignant neoplasm of pleura; C79.72 Secondary malignant neoplasm of left adrenal gland; D70.1 Agranulocytosis secondary to cancer chemotherapy; T45.1X5A Adverse effect of antineoplastic and immunosuppressive drugs, initial encounter; Z87.891 Personal history of nicotine dependence; K21.9 Gastro-esophageal reflux disease without esophagitis; R06.02 Shortness of breath; Z79.899 Other long term (current) drug therapy
CPT/HCPCS: 36591; 71260; 74177; 80053; 82378; 83615; 85025; 99215

== ENCOUNTER 2024-07-28 10:25 | Oncology outpatient (recurring) (ONCR) | payer MEDICARE, MEDICAID, SELFPAY ==
[2024-07-28 11:20] LABS: Basophils # 0.1 10^3/uL (0.0-0.1); Basophils % 1.8 %; Eosinophils % 0.6 %; Hematocrit 39.9 % (37-53); Lymphocytes # 1.1 10^3/uL (0.8-4.8); Lymphocytes % 21.6 %; Mean Corpuscular HGB Conc 32.6 g/dL (30-55); Mean Corpuscular Hemoglobin 30.6 pg (27-33); Mean Corpuscular Volume 93.9 fl (82-101); Mean Platelet Volume 10.1 fL (7.4-10.4); Monocytes # 0.5 10^3/uL (0.2-0.9); Monocytes % 9.4 %; Neutrophils # 3.39 10^3/uL (1.8-7.7); Nucleated Red Blood Cells % 0 %; Platelet Count 214 10^3/cmm (157-399); Red Blood Count 4.25 10^6/uL (3.85-5.65); Red Cell Distribution Width 13.8 % (12.1-15.1); White Blood Count 5.13 10^3/uL (3.29-11.43)
[2024-07-28 11:58] LABS: Alanine Aminotransferase 9 U/L (0-41); Albumin Level 4.1 g/dL (3.5-5.2); Alkaline Phosphatase 141 U/L (40-130); Anion Gap 16.5 (5-19); Aspartate Amino Transferase 15 U/L (0-40); Blood Urea Nitrogen 17 mg/dL (8-23); Calcium 8.9 mg/dL (8.5-10.5); Carbon Dioxide 21 mmol/L (22-29); Chloride 97 mmol/L (98-107); Ferritin 353 ng/mL (30-400); Globulin 2.9 g/dL (1.3-4.6); Glomerular Filtration Rate 113.2 mL/min (90-130); Glucose 101 mg/dL (65-115); Iron 46 ug/dL (59-158); Osmolality Calculated 272 mOsm/kg (285-295); Percent Saturation 18.7 % (20-50); Potassium 4.5 mmol/L (3.5-5.1); Sodium 130 mmol/L (136-145); Total Bilirubin 0.8 mg/dL (0.15-1.2); Total Iron Binding Capacity 245 mcg/dl; Unsaturated Iron Binding 199 ug/dL (112-347); Vitamin B12 979 pg/mL (232-1245)
[2024-07-28 12:10] LABS: Folate Level 17.8 ng/mL (4.5-32.2)
== END 2024-08-16 23:59 | disposition home or self-care (01) ==
PROVIDERS: PCP Physician Assistant; Visit Provider Internal Medicine
DX: C15.5 Malignant neoplasm of lower third of esophagus (principal); D70.1 Agranulocytosis secondary to cancer chemotherapy; T45.1X5A Adverse effect of antineoplastic and immunosuppressive drugs, initial encounter; K21.9 Gastro-esophageal reflux disease without esophagitis; R06.02 Shortness of breath; G89.3 Neoplasm related pain (acute) (chronic); M25.529 Pain in unspecified elbow; Z95.828 Presence of other vascular implants and grafts; Z87.891 Personal history of nicotine dependence; Z79.899 Other long term (current) drug therapy
CPT/HCPCS: 36591; 80053; 82607; 82728; 82746; 83540; 83550; 85025; 99213

== ENCOUNTER 2024-09-02 14:00 | Oncology outpatient (recurring) (ONCR) | payer MEDICARE, MEDICAID, SELFPAY ==
[2024-08-26 09:31] LABS: Hematocrit 42.8 % (37-53); Hemoglobin 14.40 g/dL (11.27-16.99); Mean Corpuscular HGB Conc 33.6 g/dL (30-55); Mean Corpuscular Hemoglobin 31.4 pg (27-33); Mean Corpuscular Volume 93.2 fl (82-101); Nucleated Red Blood Cells % 0 %; Platelet Count 255 10^3/cmm (157-399); Red Blood Count 4.59 10^6/uL (3.85-5.65); White Blood Count 6.51 10^3/uL (3.29-11.43)
[2024-08-26 09:43] LABS: Alanine Aminotransferase 8 U/L (0-41); Albumin Level 4.2 g/dL (3.5-5.2); Alkaline Phosphatase 138 U/L (40-130); Anion Gap 16.6 (5-19); Aspartate Amino Transferase 11 U/L (0-40); Blood Urea Nitrogen 10 mg/dL (8-23); Calcium 9.3 mg/dL (8.5-10.5); Carbon Dioxide 26 mmol/L (22-29); Chloride 95 mmol/L (98-107); Creatinine Clr Calc Pharmacy 64.9674; Globulin 3.3 g/dL (1.3-4.6); Glucose 105 mg/dL (65-115); Osmolality Calculated 275 mOsm/kg (285-295); Potassium 4.6 mmol/L (3.5-5.1); Sodium 133 mmol/L (136-145); Total Protein 7.5 g/dL (6.6-8.7)
--- NOTE | 2024-08-26 12:07 | XR_ITS ---
WS: [id number] Exam: XR chest 3V [id number] Date/Time of Exam: 08/26/2024 12:14 PM Reason For Exam: shortness of breath Comparison 07/10/2023. Lungs are fully inflated. There is infiltrate or a mass and atelectasis in the RIGHT lower lobe and small RIGHT basal pleural effusion. This shows improvement since the last exam. Heart size is normal. The mediastinum is normal in contour. A right-sided port appears to end in the lower one third of the SVC. No pneumothorax. XR/XR chest 3V [id number] IMPRESSION: 1. Density in the RIGHT lower lung suggesting infiltrate or a mass. RIGHT lower lobe atelectasis and RIGHT basal pleural effusion. Improvement since last stud y.
--- NOTE | 2024-09-02 14:00 | CT_ITS ---
WS: [id number] CTA OF THE CHEST WITH PULMONARY EMBOLISM PROTOCOL TECHNIQUE: High-resolution contrast enhanced CTA of the chest with coronal and sagittal reformatted images with pulmonary embolism protocol. MIP images are also reviewed. CLINICAL INFORMATION: sudden onset shortness of breath and elevated d dimer COMPARISON: CT 06/21/2024 DLP: 188.[address] scans at [facility] use at least one of these dose optimization techniques: automated exposure control; mA and/or kV adjustment per patient size (includes targeted exams where dose is matched to clinical indication); or iterative reconstruction. FINDINGS: Hyperinflation with chronic emphysematous change. Proximal main pulmonary arteries are normal. No evidence of pulmonary embolus. Similar-appearing pleural-based metastasis with loculated pleural fluid. No progressed mediastinal or hilar lymphadenopathy. No axillary lymphadenopathy. Stable large LEFT adrenal mass. Small esophageal hiatal hernia. Stable thickening of the distal third thoracic esophagus extending to the GE junction. RIGHT lower lobe pleural-based nodule posterior medially is progressed today measuring 14 mm. Lymphadenopathy upper abdomen. Metastatic lesions along the diaphragm. Metastatic involvement with thickening along the diaphragm appears progressed. Small noncalcified nodule LEFT upper lobe anteriorly. Slight atelectasis in the lingula. Intercostal nodularity appears improved in some areas. CT/CT angio chest PE protcl [id number] IMPRESSION: 1. No evidence of pulmonary embolus. 2. No acute pulmonary infiltrates. 3. Similar-appearing pleural-based metastasis with loculated pleural fluid. 4. Progressed 14 mm nodule RIGHT lower lobe posteromedially. 5. Progressed masslike thickening along the diaphragm. 6. Stable large LEFT adrenal mass. 7. Intercostal nodularity appears improved
[2024-09-02] MEDS: iohexol 350 mg/mL 500 mL Btl (per mL) IV (14:21)
== END 2024-09-16 23:59 | disposition home or self-care (01) ==
LOC: ONCMED 14:05 → RAD 09-03 → ONCMED 09-06 09:15
PROVIDERS: Nurse Practitioner; PCP Physician Assistant; Visit Provider Internal Medicine
DX: C15.5 Malignant neoplasm of lower third of esophagus (principal); D70.1 Agranulocytosis secondary to cancer chemotherapy; T45.1X5A Adverse effect of antineoplastic and immunosuppressive drugs, initial encounter; K21.9 Gastro-esophageal reflux disease without esophagitis; R06.02 Shortness of breath; G89.3 Neoplasm related pain (acute) (chronic); M25.529 Pain in unspecified elbow; Z95.828 Presence of other vascular implants and grafts; Z87.891 Personal history of nicotine dependence; Z79.899 Other long term (current) drug therapy; C78.2 Secondary malignant neoplasm of pleura; C79.72 Secondary malignant neoplasm of left adrenal gland; J91.0 Malignant pleural effusion
CPT/HCPCS: 36591; 71047; 71275; 80053; 85025; 85378; 86850; 86900; 99215

== ENCOUNTER 2024-10-06 13:24 | Oncology outpatient (recurring) (ONCR) | payer MEDICARE, MEDICAID, SELFPAY ==
[2024-10-04 12:54] LABS: Hematocrit 39.3 % (37-53); Hemoglobin 13.30 g/dL (11.27-16.99); Mean Corpuscular HGB Conc 33.8 g/dL (30-55); Mean Corpuscular Hemoglobin 30.9 pg (27-33); Mean Corpuscular Volume 91.4 fl (82-101); Nucleated Red Blood Cells % 0 %; Platelet Count 242 10^3/cmm (157-399); Red Blood Count 4.30 10^6/uL (3.85-5.65); White Blood Count 5.73 10^3/uL (3.29-11.43)
[2024-10-04 13:11] LABS: Alanine Aminotransferase 6 U/L (0-41); Albumin Level 3.9 g/dL (3.5-5.2); Alkaline Phosphatase 145 U/L (40-130); Anion Gap 14.5 (5-19); Aspartate Amino Transferase 9 U/L (0-40); Blood Urea Nitrogen 10 mg/dL (8-23); Calcium 9.3 mg/dL (8.5-10.5); Carbon Dioxide 28 mmol/L (22-29); Chloride 95 mmol/L (98-107); Ferritin 380 ng/mL (30-400); Globulin 3.1 g/dL (1.3-4.6); Glucose 99 mg/dL (65-115); Iron 26 ug/dL (59-158); Osmolality Calculated 275 mOsm/kg (285-295); Potassium 4.5 mmol/L (3.5-5.1); Sodium 133 mmol/L (136-145); Total Iron Binding Capacity 224 mcg/dl; Total Protein 7.0 g/dL (6.6-8.7); Unsaturated Iron Binding 198 ug/dL (112-347)
[2024-10-04 13:27] LABS: Vitamin B12 907 pg/mL (232-1245)
[2024-10-04 13:37] LABS: Carcinoembryonic Antigen 5.1 ng/mL (0.0-4.7)
[2024-10-04] MEDS: iohexol 350 mg/mL 500 mL Btl (per mL) PO (13:50)
--- NOTE | 2024-10-04 14:00 | CTR_ITS ---
PROCEDURE INFORMATION: Exam: CT Chest With Contrast; Diagnostic Exam date and time: 10/04/2024 1:58 PM Age: 64 years old Clinical indication: Condition or disease; Other: Ademocarcinoma of lower esophagus; Prior surgery; Surgery date: 6+ months; Surgery type: Port TECHNIQUE: Imaging protocol: Diagnostic computed tomography of the chest with contrast. Radiation optimization: All CT scans at this facility use at least one of these dose optimization techniques: automated exposure control; mA and/or kV adjustment per patient size (includes targeted exams where dose is matched to clinical indication); or iterative reconstruction. Contrast material: OMNI 350; Contrast volume: 100 ml; Contrast route: INTRAVENOUS (IV); COMPARISON: CT angio chest PE protcl [id number] 09/02/2024 2:16 PM RADIATION DOSE METRICS: Total DLP (mGy-cm): 452.57 FINDINGS: Lungs: Stable opacities laterally in the right middle lobe and laterally right lower lobe abutting upon the pleura or pleural-based stable 1.3 cm nodule posterior medially right lower lobe possibly pleural-based. Stable sub 4 mm nodules in the left lower lobe. Emphysematous changes again seen most marked upper lobes. Pleural spaces: Stable small loculated effusion on. Heart: Normal in size. No pericardial effusion. Coronary artery calcification. This can be associated with increased incidence coronary heart. Lymph nodes: No enlarged lymph nodes. Vasculature: Mild ectasia ascending thoracic aorta. MediPort tip superior vena cava. Bones/joints: Mild left convexity thoracic scoliosis with changes. Soft tissues: Mild gynecomastia. Other: Small hiatal hernia. Apparent postsurgical changes distal esophagus. PROCEDURE INFORMATION: Exam: CT Abdomen And Pelvis With Contrast Exam date and time: 10/04/2024 1:58 PM Age: 64 years old Clinical indication: Condition or disease; Other: Ademocarcinoma of lower esophagus; Prior surgery; Surgery date: 6+ months; Surgery type: Port TECHNIQUE: Imaging protocol: Computed tomography of the abdomen and pelvis with contrast. Radiation optimization: All CT scans at this facility use at least one of these dose optimization techniques: automated exposure control; mA and/or kV adjustment per patient size (includes targeted exams where dose is matched to clinical indication); or iterative reconstruction. Contrast material: OMNI 350; Contrast volume: 100 ml; Contrast route: INTRAVENOUS (IV); COMPARISON: CT chest abdpel w/*[id number] 06/21/2024 4:59 PM RADIATION DOSE METRICS: Total DLP (mGy-cm): 452.57 FINDINGS: Liver: Normal. No mass. Gallbladder and biliary ducts: Normal. No calcified stones. No ductal dilation. Pancreas: Normal. No ductal dilation. Spleen: Normal. No splenomegaly. Adrenal glands: Increase in size left adrenal mass now measuring 3.27 x 5.76 cm in diameter. Development of a right adrenal mass measuring 3.6 x 4.3 cm in diameter. These suspicious for and consistent with metastases Kidneys and ureters: Small subcentimeter small renal cysts again seen bilaterally. No follow-up imaging recommended. The fact Total: 2.9 mm Benign simple renal cysts small bilateral renal cysts as seen previously. No follow-up imaging recommended. requiring no follow-up. (Reference: Fran) References: Fran TORRES, et al. Bosniak Classification of Cystic Renal Masses, Version 2019: An Update Proposal and Needs Assessment. Radiology. 2019;292(2):475-488. Stomach and bowel: Mild nonobstructive dilatation of the stomach containing contrast. Mild nonobstructive dilatation of small bowel containing contrast and fluid. There is nonobstructive dilatation of the colon containing semi solid stool with rectum measuring 6.3 cm diameter cecum measuring 416 cm greatest diameter. No wall thickening. Correlate for symptoms of stasis or constipation. Appendix: No evidence of appendicitis. Urinary bladder: Unremarkable. Prostate: Mildly enlarged with lobulation superior aspect. Soft tissues: Unremarkable. Bones: Degenerative changes lumbar spine. Vascular: Moderate atherosclerosis without aneurysm. CT/CT chest [facility] w/*[id number] IMPRESSION: 1. No acute findings. 2. Stable pleural-based opacities/masses lobe. Stable loculated effusion on the right. 3. Apparent postsurgical changes distal esophagus. Small hiatal hernia. 4. Emphysematous changes again seen most marked upper lobes. Impression: 1. Increase in size of the left adrenal mass with development of a large right adrenal mass. These are consistent with metastases. 2. Again seen small renal cysts. No follow-up imaging recommended. 3. Stomach contains prominent amount of semi solid stool. Correlate for stasis or symptoms of constipation. 4. Mild prostatic enlargement with some lobulation of its superior aspect.
[2024-10-04] MEDS: iohexol 350 mg/mL 500 mL Btl (per mL) IV (14:02)
== END 2024-10-17 23:59 | disposition home or self-care (01) ==
PROVIDERS: PCP Physician Assistant; Visit Provider Internal Medicine
DX: C15.5 Malignant neoplasm of lower third of esophagus (principal); R06.02 Shortness of breath; D70.1 Agranulocytosis secondary to cancer chemotherapy; T45.1X5A Adverse effect of antineoplastic and immunosuppressive drugs, initial encounter; C79.70 Secondary malignant neoplasm of unspecified adrenal gland; K21.9 Gastro-esophageal reflux disease without esophagitis; K59.00 Constipation, unspecified; Z95.828 Presence of other vascular implants and grafts; Z87.891 Personal history of nicotine dependence
CPT/HCPCS: 36591; 71260; 74177; 80053; 82378; 82607; 82728; 82746; 83540; 83550; 85025; 99213

== ENCOUNTER 2024-11-10 14:50 | Oncology outpatient (recurring) (ONCR) | payer MEDICARE, MEDICAID, SELFPAY | END 2024-11-16 23:59 | disposition home or self-care (01) | PROVIDERS: PCP Physician Assistant; Visit Provider Internal Medicine | DX: C15.5 Malignant neoplasm of lower third of esophagus (principal); R06.02 Shortness of breath; D70.1 Agranulocytosis secondary to cancer chemotherapy; T45.1X5A Adverse effect of antineoplastic and immunosuppressive drugs, initial encounter; C79.70 Secondary malignant neoplasm of unspecified adrenal gland; K21.9 Gastro-esophageal reflux disease without esophagitis; K59.00 Constipation, unspecified; Z95.828 Presence of other vascular implants and grafts; Z87.891 Personal history of nicotine dependence; M25.529 Pain in unspecified elbow; N28.1 Cyst of kidney, acquired; R93.3 Abnormal findings on diagnostic imaging of other parts of digestive tract; N40.0 Benign prostatic hyperplasia without lower urinary tract symptoms; R91.8 Other nonspecific abnormal finding of lung field; J90 Pleural effusion, not elsewhere classified; I25.10 Atherosclerotic heart disease of native coronary artery without angina pectoris; Z96.89 Presence of other specified functional implants; I77.810 Thoracic aortic ectasia; M41.84 Other forms of scoliosis, thoracic region; N62 Hypertrophy of breast; K44.9 Diaphragmatic hernia without obstruction or gangrene; Z98.890 Other specified postprocedural states; M47.9 Spondylosis, unspecified; I70.90 Unspecified atherosclerosis; R93.89 Abnormal findings on diagnostic imaging of other specified body structures | CPT/HCPCS: 99214 ==

== ENCOUNTER 2024-11-24 11:37 | Oncology outpatient (recurring) (ONCR) | payer MEDICARE, MEDICAID, SELFPAY | END 2024-12-17 23:59 | disposition home or self-care (01) | PROVIDERS: PCP Physician Assistant; Visit Provider Internal Medicine | DX: Z45.2 Encounter for adjustment and management of vascular access device (principal); Z95.828 Presence of other vascular implants and grafts | CPT/HCPCS: 96523 ==